=== PATIENT | female | born 1950 | race Caucasian/White ===

== ENCOUNTER 2016-08-10 12:36 | Emergency (ER) | payer BC ==
[2016-08-10] MEDS ORDERED: 0.9 % SODIUM CHLORIDE 10 ML DISP.SYRIN. IV PRN (12:45)
[2016-08-10] MEDS ORDERED: LABETALOL 20 MG/4 ML DISP.SYRIN. IV PRN (12:45)
--- NOTE | 2016-08-10 12:53 | PHYS DOC ---
Past History Past Medical History: Diabetes, High Cholesterol, Hypertension Past Surgical History: Knee Replacement (bilaterally) Smoking: Non-smoker Alcohol Use: None Drug Use: None Adult General Chief Complaint Chief Complaint: difficulty speaking HPI HPI This is a pleasant 65-year-old female with a history of hypertension, hypercholesterolemia, chronic lower back pain but noted difficulty speaking and expressing certain words over the last hour. This began while attempted to call her sister she is having difficulty speaking on the phone. She denies any headache, chest pain, abdominal pain, recent change in medications or trauma. She notes is some slightly decreased sensation on the right lower extremity. He words but it takes her a while to get that out. She has a hard time getting words out that she can remember quickly but cannot seem to speak. Patient denies any prior symptoms the same, denies any URI symptoms, denies any nausea, vomiting, dizziness, tinnitus or other complaints. History of a long-standing strabismus effecting the left eye she's had prior cataract surgeries vision. Her clear dysarthria on examination I would treat this as an acute stroke. Code stroke called she is noted to be hypertensive on arrival which is a relative contra indication at this time and I'll treat aggressively to bring it down. Review of Systems Review of Systems Constitutional: Denies fever or chills [] Eyes: Denies change in visual acuity, redness, or eye pain [] HENT: Denies nasal congestion or sore throat [] Respiratory: Denies cough or shortness of breath [] Cardiovascular: No additional information not addressed in HPI [] GI: Denies abdominal pain, nausea, vomiting, bloody stools or diarrhea [] : Denies dysuria or hematuria [] Musculoskeletal: sHe does complain of lower back pain is chronic in nature nothing changed nothing new. Integument: Denies rash or skin lesions [] Neurologic: Denies headache, focal weakness or sensory changes [] Endocrine: Denies polyuria or polydipsia [] Physical Exam Physical Exam Noted extreme hypertension of 206/69. Constitutional: Well developed, well nourished, obviously uncomfortable anxious morbidly obese. HENT: Normocephalic, atraumatic, bilateral external ears normal, oropharynx moist, no oral exudates, nose normal. [] Eyes: PERRLA, EOMI, conjunctiva normal, no discharge. She'll be noted with a left eye strabismus with lateral gaze preference. Neck: Normal range of motion, no tenderness, supple, no stridor. [] Cardiovascular:Heart rate regular rhythm, no murmur [] Lungs & Thorax: Bilateral breath sounds clear to auscultation [] Abdomen: Bowel sounds normal, soft, no tenderness, no masses, no pulsatile masses. [] Skin: Warm, dry, no erythema, no rash. [] Back: No tenderness, no CVA tenderness. [] Extremities: No tenderness, no cyanosis, no clubbing, ROM intact, no edema. [] Neurologic: Alert and oriented X 3, normal motor function, she did demonstrate some decreased sensation over the right lower extremity. He also demonstrates some aphasia although slight. no Dysarthria Psychologic: Affect normal, judgement normal, she is very anxious [] Current Patient Data Lab Results Laboratory Tests Test 08/10/16 13:30 White Blood Count 8.2 x10^3/uL (4.0-11.0) Red Blood Count 5.01 x10^6/uL (3.50-5.40) Hemoglobin 14.7 g/dL (12.0-15.5) Hematocrit 44.3 % (36.0-47.0) Mean Corpuscular Volume 88 fL (79-100) Mean Corpuscular Hemoglobin 29 pg (25-35) Mean Corpuscular Hemoglobin Concent 33 g/dL (31-37) Red Cell Distribution Width 13.6 % (11.5-14.5) Platelet Count 141 x10^3/uL (140-400) Neutrophils (%) (Auto) 63 % (31-73) Lymphocytes (%) (Auto) 28 % (24-48) Monocytes (%) (Auto) 8 % (0-9) Eosinophils (%) (Auto) 1 % (0-3) Basophils (%) (Auto) 1 % (0-3) Neutrophils # (Auto) 5.2 x10^3uL (1.8-7.7) Lymphocytes # (Auto) 2.3 x10^3/uL (1.0-4.8) Monocytes # (Auto) 0.6 x10^3/uL (0.0-1.1) Eosinophils # (Auto) 0.1 x10^3/uL (0.0-0.7) Basophils # (Auto) 0.0 x10^3/uL (0.0-0.2) EKG EKG EKG timed 12:51 PM demonstrates normal sinus rhythm heart rate 90. [place] interval of 122 QRS width is normal 80 QTc normal at 440. Patient demonstrates T-wave flattening and inversion in V1 which may be a normal variant but there is T- wave flattening in lead 3 there is no evidence of acute myocardial infarct with ST segment elevation. This is read by Dr. Saleem. [] Radiology/Procedures Radiology/Procedures [] [address] [address] IMAGING REPORT Signed PATIENT: KIERSTEN RENTERIA ACCOUNT: [id number] : 1950 LOCATION: ER AGE: 65 SEX: F EXAM STATUS: REG ER ORD. PHYSICIAN: LEA SALEEM MD REASON: aphasia PROCEDURE: CT HEAD WO CONTRAST CT of the head without contrast, 08/10/2016: History: Aphasia, dizziness The ventricles are within normal limits in size. There is no shift of the midline structures. There is no evidence of acute intracranial hemorrhage or mass effect. There is a small deep white matter lucency in the right parietal region. The bone windows are unremarkable. IMPRESSION: 1. Small right parietal deep white matter lucency suggesting an old infarct. Minimal edema due to an active process is less likely. MR scanning would be more sensitive method of further evaluation, if clinically indicated. 2. The CT of the head without contrast is otherwise unremarkable. PQRS Compliance Statement: One or more of the following individualized dose reduction techniques were utilized for this examination: 1. Automated exposure control 2. Adjustment of the mA and/or kV according to patient size 3. Use of iterative reconstruction technique DICTATED AND SIGNED BY: MALENA FUCHS MD DATE: 08/10/16 1316 CC: LEA SALEEM MD; QUE ALMEIDA MD ~ Impressions: Patient's AP chest film timed 1320 p.m. 08/10/[address] Saleem demonstrates no cardiomegaly there is some rotation to the lungs themselves based on positioning of the portal chest x-ray. There is no pleural effusion is no evidence of infiltrate. There is no evidence of pneumothorax or pneumonia. Patient has no evidence of subdiaphragmatic air. Course & Med Decision Making Course & Med Decision Making Pertinent Labs and Imaging studies reviewed. (See chart for details) he initially arrived with some mild light touch proprioception loss on the lower extremity. Given her symptoms she has a stroke scale of 2. She will have a CAT scan done immediately as part of the code stroke He is very hypertensive and our trying to address her hypertension with IV medications specifically labetalol first. I will call neurology once a CAT scan is back to talk with disposition and treatment. CAT scan was reviewed by me report read by radiologist neonatal intensive care unit nurse demonstrates a right parietal deep white matter lucency suggesting an old infarct minimal edema due to an active process is less likely. Suggest MR scanning would be more sensitive for further evaluation if clinically indicated. The CT without contrast is otherwise unremarkable according to the radiologist. 1a. Level of consciousness: 0 = Alert; keenly responsive. 1 = Not alert; but arousable by minor stimulation to obey, answer, or respond. 2 = Not alert; requires repeated stimulation to attend, or is obtunded and requires strong or painful stimulation to make movements (not stereotyped). 3 = Responds only with reflex motor or autonomic effects or totally unresponsive , flaccid, and areflexic. 1b. LOC questions: 0 = Answers both questions correctly. 1 = Answers one question correctly. 2 = Answers neither question correctly. 1c. LOC commands: 0 = Performs both tasks correctly. 1 = Performs one task correctly. 2 = Performs neither task correctly. 2. Best gaze: 0 = Normal. 1 = Partial gaze palsy; gaze is abnormal in one or both eyes, but forced deviation or total gaze paresis is not present. 2 = Forced deviation, or total gaze paresis not overcome by the oculocephalic maneuver. 3. Visual: 0 = No visual loss. 1 = Partial hemianopia. 2 = Complete hemianopia. 3 = Bilateral hemianopia (blind including cortical blindness). 4. Facial palsy: 0 = Normal symmetrical movements. 1 = Minor paralysis (flattened nasolabial fold, asymmetry on smiling). 2 = Partial paralysis (total or near-total paralysis of lower face). 3 = Complete paralysis of one or both sides (absence of facial movement in the upper and lower face). 5. Motor arm: 0 = No drift; limb holds 90 (or 45) degrees for full 10 seconds. 1 = Drift; limb holds 90 (or 45) degrees, but drifts down before full 10 seconds ; does not hit bed or other support. 2 = Some effort against gravity; limb cannot get to or maintain (if cued) 90 ( or 45) degrees, drifts down to bed, but has some effort against gravity. 3 = No effort against gravity; limb falls. 4 = No movement. UN = Amputation or joint fusion, explain: 5a. Left arm 5b. Right arm 6. Motor le = No drift; leg holds 30-degree position for full 5 seconds. 1 = Drift; leg falls by the end of the 5-second period but does not hit bed. 2 = Some effort against gravity; leg falls to bed by 5 seconds, but has some effort against gravity. 3 = No effort against gravity; leg falls to bed immediately. 4 = No movement. UN = Amputation or joint fusion, explain: 6a. Left leg 6b. Right leg 7. Limb ataxia: 0 = Absent. 1 = Present in one limb. 2 = Present in two limbs. UN = Amputation or joint fusion 8. Sensory: 0 = Normal; no sensory loss. 1 = Esbk-oh-fvqictfa sensory loss; patient feels pinprick is less sharp or is dull on the affected side; or there is a loss of superficial pain with pinprick , but patient is aware of being touched. 2 = Severe to total sensory loss; patient is not aware of being touched in the face, arm, and leg. 9. Best language: 0 = No aphasia; normal. 1 = Lezc-ic-vdzhnbsz aphasia; some obvious loss of fluency or facility of comprehension, without significant limitation on ideas expressed or form of expression. Reduction of speech and/or comprehension, however, makes conversation about provided materials difficult or impossible. For example, in conversation about provided materials, examiner can identify picture or naming card content from patient's response. 2 = Severe aphasia; all communication is through fragmentary expression; great need for inference, questioning, and guessing by the listener. Range of information that can be exchanged is limited; listener carries burden of communication. Examiner cannot identify materials provided from patient response. 3 = Mute, global aphasia; no usable speech or auditory comprehension. 10. Dysarthria: 0 = Normal. 1 = Ipaw-de-ucwfebgn dysarthria; patient slurs at least some words and, at worst , can be understood with some difficulty. 2 = Severe dysarthria; patient's speech is so slurred as to be unintelligible in the absence of or out of proportion to any dysphasia, or is mute/anarthric. UN = Intubated or other physical barrier, explain: 11. Extinction and inattention (formerly neglect): 0 = No abnormality. 1 = Visual, tactile, auditory, spatial, or personal inattention or extinction to bilateral simultaneous stimulation in one of the sensory modalities. 2 = Profound elicia-inattention or extinction to more than one modality; does not recognize own hand or orients to only one side of space. I have also reviewed the stroke inclusion and exclusion criteria for TPA with the patient and family at the bedside at this point there is no evidence of intracranial hemorrhage, there is no suggestive history or physical or CT findings of subarachnoid hemorrhage, there is no history of AV malformation or aneurysm. There's been no prior stroke last 2 months has been no history of intercranial hemorrhage is been no history of bleeding diathesis is no evidence of acute bleeding or acute trauma and unfortunately at this point patient's blood pressure is 185 or higher systolically and I will attempt to treat. []Wellness Coach note: Dr. Tello are all just neonatal intensive care unit nurse spoke with him at 1:38 PM Wellness Coach called at of the service 1:35 PM Consult called back at 137 PM Discussed the case I presented and they agreed with admission. Time of acceptance is and will agree to see us consult. Wellness Coach note: neonatal intensive care unit nurse internal medicine Wellness Coach called at of the service 1:38 PM Consult called back at 139 PM Discussed the case I presented and they agreed with admission. Time of acceptance 1:40 p.m. Internal medicine physician and hospital neurologist agree that her blood pressure to be appropriately dropped by at least 30 or 40% under 185 or 100 she is an appropriate candidate for TPA. Her second blood pressure measured at the [facility] is 151/77 with a heart rate of 104. Patient is definitely deserving of this TPA secondary to aphasia. Patient is also relatively young and good strong muscular strength. We will over the inclusion and exclusion criteria with family at bedside they were agreeable to medication we will sign the consent form and agreed to give TPA as soon as possible to be arranged. It was a challenge ordering the TPA as the order instructions of 0.09 kilogram given as a dose is actually incorrect. Patient will be given 0.9 mg/kg as appropriate dose for 10% initially be given as a bolus followed by an hour infusion of the rest medication. Patient will then be admitted to the ICU at [facility]. At this point I used a body weight of 247 pounds 112 kg. Patient will have approximately 10 g given IV bolus 1 and 101 mg give over 1 hour period. We will only give her the appropriate maximal dose of 90 mg though. This point patient is very half to receiving this medication will be consulted for transfer to our sister facility [facility]. I spent approximately 45-50 minutes working and engaged directly in the patient care providing critical care evaluation this includes but not limited to time spent engaged in work directly related to the individual patients care. I spent time at the bedside, reviewing test results, discussing the case with staff, documenting the medical record and time spent with EMS discussing specific treatment issues when the patient presented and during his evaluation. Impression: CVA, hypertension disposition: Transferred to [facility] in the care of neurology and internal medicine. On discharge patient did have a slight experience of amnesia where she was not quite her where she was was happening to her. She just received a small dose of fentanyl which may be contributory symptoms. I explained and shared my concerns with Dr. Elisha Soto Disclaimer Brittany Disclaimer This chart was dictated in whole or in part using Voice Recognition software in a busy, high-work load, and often noisy Emergency Department environment. It may contain unintended and wholly unrecognized errors or omissions. Departure Departure: Impression: Primary Impression: Stroke Additional Impression: Hypertension Disposition: 05 XFER OTHER Condition: GUARDED Referrals: QUE ALMEIDA MD (PCP) Problem Qualifiers LEA SALEEM MD Aug 10, 2016 12:53
--- NOTE | 2016-08-10 13:22 | RAD ---
CT of the head without contrast, 08/10/2016: History: Aphasia, dizziness The ventricles are within normal limits in size. There is no shift of the midline structures. There is no evidence of acute intracranial hemorrhage or mass effect. There is a small deep white matter lucency in the right parietal region. The bone windows are unremarkable. IMPRESSION: 1. Small right parietal deep white matter lucency suggesting an old infarct. Minimal edema due to an active process is less likely. MR scanning would be more sensitive method of further evaluation, if clinically indicated. 2. The CT of the head without contrast is otherwise unremarkable. PQRS Compliance Statement: One or more of the following individualized dose reduction techniques were utilized for this examination: 1. Automated exposure control 2. Adjustment of the mA and/or kV according to patient size 3. Use of iterative reconstruction technique
[2016-08-10 13:45] LABS: BASO % 1 % (0-3); EOS # 0.1 x10^3/uL (0.0-0.7); EOS % 1 % (0-3); HEMATOCRIT 44.3 % (36.0-47.0); HEMOGLOBIN 14.7 g/dL (12.0-15.5); LYMPH # 2.3 x10^3/uL (1.0-4.8); LYMPH % 28 % (24-48); MEAN CORPUSCULAR HEMOGLOBIN 29 pg (25-35); MEAN CORPUSCULAR HGB CONC 33 g/dL (31-37); MEAN CORPUSCULAR VOLUME 88 fL (79-100); MONO # 0.6 x10^3/uL (0.0-1.1); MONO % 8 % (0-9); NEUT # 5.2 x10^3uL (1.8-7.7); NEUT % 63 % (31-73); PLATELET COUNT 141 x10^3/uL (140-400); RED BLOOD COUNT 5.01 x10^6/uL (3.50-5.40); RED CELL DISTRIBUTION WIDTH 13.6 % (11.5-14.5); WHITE BLOOD COUNT 8.2 x10^3/uL (4.0-11.0)
[2016-08-10] MEDS ORDERED: TOTAL VOLUME IV ONE (13:45)
[2016-08-10] MEDS ORDERED: ALTEPLASE IV ONE ×3 (13:45→14:29)
[2016-08-10] MEDS ORDERED: ALTEPLASE 100 MG IV ONE (13:55)
[2016-08-10 14:00] LABS: ALBUMIN 3.3 g/dL (3.4-5.0); ALBUMIN/GLOBULIN RATIO 0.8 (1.0-1.7); CALCIUM 8.8 mg/dL (8.5-10.1); CREATININE 1.3 mg/dL (0.6-1.0); GFR 41.2; POTASSIUM 4.2 mmol/L (3.5-5.1); TOTAL BILIRUBIN 0.5 mg/dL (0.2-1.0); TOTAL PROTEIN 7.4 g/dL (6.4-8.2)
[2016-08-10] MEDS ORDERED: fentaNYL PF 100 MCG/2 ML VIAL IV PRN (14:00)
[2016-08-10] MEDS ORDERED: IV NORMAL SALINE 1,000ML 1,000 ML IV SCH (14:00)
--- NOTE | 2016-08-10 14:01 | RAD ---
Portable chest, 08/10/2016: History: Chest pain, slurred speech The patient is rotated to the right. The heart size and pulmonary vascularity are normal. No pulmonary infiltrates are seen. There is no evidence of pleural fluid. There is deformity of the mid right clavicle compatible with an old fracture. IMPRESSION: No acute cardiopulmonary abnormality is detected.
--- NOTE | 2016-08-10 14:15 | EKG ---
[address] [address] Test Date: 2016-08-10 Test Time: 12:51:14 Pat Name: KIERSTEN RENTERIA Department: Room: Gender: F [employer]: : 1950 Requested By: LEA SALEEM Order Number: [id number] Reading MD: Measurements Intervals [place] Rate: 90 P: -124 MD: 122 QRS: 11 QRSD: 80 T: 33 QT: 356 QTc: 440 Interpretive Statements SINUS RHYTHM QRS(T) CONTOUR ABNORMALITY CONSIDER ANTEROLATERAL MYOCARDIAL DAMAGE RI6.01 Unconfirmed report No previous ECG available for comparison
[2016-08-10 15:11] VITALS: BP 160/82
== END 2016-08-10 15:20 | disposition short-term general hospital (02) ==
LOC: ER 12:36
DX: I63.9 Cerebral infarction, unspecified (principal); I10 Essential (primary) hypertension; E11.9 Type 2 diabetes mellitus without complications; E78.00 Pure hypercholesterolemia, unspecified; G89.29 Other chronic pain
CPT/HCPCS: 36415; 37195; 70450; 71010; 80053; 83735; 84443; 84484; 85027; 93005; 96374; 99285; J2997; J3010; J7030

== ENCOUNTER → 2017-03-24 | Outpatient (CLI) | payer MEDICARE | END | disposition home or self-care (01) | LOC: LAB 13:33 | PROVIDERS: ATTEND Internal Medicine Gastroenterology | DX: K63.5 Polyp of colon (principal) | CPT/HCPCS: 36415; 82378 ==

== ENCOUNTER 2019-08-17 03:19 | Inpatient (IN) | payer MEDICARE ==
[~2019-08-17] VITALS: Ht 160 cm; Wt 112.5 kg
--- NOTE | 2019-08-17 03:40 | PHYS DOC ---
Past History Past Medical History: A-Fib, Arthritis, Arrhythmia, CAD, Diabetes, High Cholesterol, Hypertension, Stroke, TIA Past Medical History Sleep apnea, CVA- August 10, TPA, Hx. Past Surgical History: Knee Replacement Smoking: Non-smoker Alcohol Use: None Drug Use: None General Adult HPI: HPI: "..I felt like my CPAP was not right. I was sleeping.. so I was trying to arrange..it..but my Rt. hand and arm didn't seem right..my fingers were "t ingled"..but I could nt get my glasses .. since I had a stroke two years ago...I woke up my .. and had him call the ambulance..." " My speech was tiffany slurred.. or seemed like..." ( Pt.) " She woke me up about 1:30... said she thought she was having another stroke...she had one 2 yrs ago... got TPA.. and then rehab... ".." I noted her speech was off.. and could not get her glasses on... ".. ".. But she was able to get and go to the bathroom.. and then put on her shoes.. but I called the ambulance." "Speech was maybe a little slurred." Patient is a 68 year old female who presents with above hx and complaints of acute onset of tingling sensation in right hand and some slurred speech at 130 this morning.. Patient has history of previous CVA with TPA 2016. Patient currently is alert and oriented able answer questions.. Some mild complaints of sensation changes in her right hand fingertips but no acute new deficits appreciated.. Pt. reportedly at baseline at 2330 when she went to bed. Patient currently on Eliquis for her A. fib.. Has been compliant with her diabetic and hypertensive meds. Patient did have a recent fall on of this week due to chronic gait disorder which is baseline for her. Patient has not had any recent travel outside the [place] area. No specific ill contacts. No change in medications. Patient normally follows with Dr. Almeida. Has fol lowlana at [facility] for cardiac disorders of A. fib and hypertension. Review of Systems: Review of Systems: Constitutional: Denies fever or chills Eyes: Denies change in visual acuity HENT: Denies nasal congestion or sore throat Respiratory: Denies cough or shortness of breath Cardiovascular: Denies chest pain or edema GI: Denies abdominal pain, nausea, vomiting, bloody stools or diarrhea : Denies dysuria Musculoskeletal: Denies back pain or joint pain Integument: Denies rash Neurologic: Denies headache,. Complains of sensory changes in tips of right fingers. Complains of slurred speech. Endocrine: Denies polyuria or polydipsia Lymphatic: Denies swollen glands Psychiatric: Denies depression or anxiety Heart Score: HEART Score for Chest Pain: HEART Score for Chest Pain Response (Comments) Value History Slighlty/Non-Suspicious 0 ECG Normal 0 Age > 65 2 Risk Factors 1 or 2 Risk Factors 1 Total 3 Risk Factors: Risk Factors: DM, Current or recent (<one month) smoker, HTN, HLP, family history of CAD, obesity. Risk Scores: Score 0 - 3: 2.5% MACE over next 6 weeks - Discharge Home Score 4 - 6: 20.3% MACE over next 6 weeks - Admit for Clinical Observation Score 7 - 10: 72.7% MACE over next 6 weeks - Early Invasive Strategies Family History: Family History: Noncontributory to presentation. Current Medications: Current Meds: See nursing for home meds Allergies: Allergies: Allergies Coded Allergies Type Severity Reaction Last Updated Verified No Known Drug Allergies 08/10/16 No Physical Exam: PE: Constitutional: , no acute distress, non-toxic appearance. [] HENT: Normocephalic, atraumatic, bilateral external ears normal, oropharynx moist, no oral exudates, nose normal. [] Eyes: PERRLA, EOMI, conjunctiva normal, no discharge. [] Glasses Neck: Normal range of motion, no tenderness, supple, no stridor. [] No bruits. Neck more than 17-1/2 inches circumference Cardiovascular:Heart rate regular rhythm, no murmur [] PMI to the left Lungs & Thorax: Bilateral breath sounds equal apex some basilar crackles on auscultation [] Abdomen: Bowel sounds normal, soft, no tenderness, no masses, no pulsatile masses. Obese. Large pannus. Urinary incontinence.-Chronic Skin: Warm, dry, no erythema, no rash. Poor turgor Back: No tenderness, no CVA tenderness. [] Extremities: No tenderness, no cyanosis, no clubbing, ROM intact, bilateral ankle edema. [] Bilateral knee scars. Arthritic changes. Neurologic: Alert and oriented X 3, currently reports normal motor for her, no focal deficits noted., Subjective complaints of "tingle" RT hand finger tips. DTR-+ 2 brachial. NIH 1 to 2 . (No new demonstratable defects based on observation and pt. reports) Psychologic: Affect anxious, judgement normal, mood normal. [] Current Patient Data: Labs: Laboratory Tests Test 08/17/19 03:24 Glucose (Fingerstick) 215 mg/dL (70-99) H EKG: EKG: My interpretation EKG shows a sinus rhythm at 70 bpm with no acute morphology. [] Radiology/Procedures: Radiology/Procedures: [address] [address] IMAGING REPORT Signed PATIENT: KIERSTEN RENTERIA ACCOUNT: [id number] : 1950 LOCATION: ER AGE: 68 SEX: F EXAM STATUS: REG ER ORD. PHYSICIAN: LINDA HORNER MD REASON: TIA vs CVA, slurred speech, altered mental status PROCEDURE: PORTABLE CHEST 1V PORTABLE CHEST 1V INDICATION: Reason: TIA vs CVA, slurred speech, altered mental status / Spl. Instructions: / History: . COMPARISON STUDY: 08/10/2016. FINDINGS: Lungs: Normal lung volume. No pulmonary mass or consolidation. The tracheobronchial tree and hilar structures are normal. Pleura: No pleural effusion or pneumothorax. Heart and Mediastinum: The cardiomediastinal silhouette is normal. The great vessels of the thorax are normal. IMPRESSION: No acute cardiopulmonary process. Electronically signed by: Pavan Roman MD (08/17/2019 4:01 AM) [facility] DICTATED AND SIGNED BY: PAVAN ROMAN MD DATE: 08/17/19 0401 CC: LINDA HORNER MD; QUE ALMEIDA MD ~ [][address] [address] IMAGING REPORT Signed PATIENT: KIERSTEN RENTERIA ACCOUNT: [id number] : 1950 LOCATION: ER AGE: 68 SEX: F EXAM STATUS: PRE ER ORD. PHYSICIAN: LINDA HORNER MD REASON: Slurred speech, altered mental status PROCEDURE: CT CODE STROKE HEAD WO CT CODE STROKE HEAD WO Date: 08/17/2019 3:41 AM Clinical Indication: Reason: Slurred speech, altered mental status / Spl. Instructions: / History: Comparison: 08/14/2016, 08/10/2016. Technique: 5 mm axial tomographic images were obtained of the head without contrast. These were viewed on brain and bone windows. One or more of the following dose reduction techniques were utilized: Automated exposure control (AEC), Adjustment of mA and/or kV according to patient size, Use of iterative reconstruction technique such as ASiR, CT scan done according to ALARA and image gently/image wisely Findings: Mild nonspecific periventricular hypoattenuation is most consistent with chronic small vessel ischemic disease. No intra- or extra-axial mass or fluid collection. No acute hemorrhage. The ventricles are normal in size, shape, and morphology. The gregory-white matter junction is normal. The subarachnoid cisterns are patent. Small area of left frontal and moderate-sized left parietal encephalomalacia. Small area of right centrum semiovale ovale encephalomalacia. The visualized paranasal sinuses are normal. The visualized portions of the orbits and globes are normal. The mastoid air cells are clear. The patient care specialist topogram shows no lytic lesion or fracture. Impression: 1. No acute hemorrhage or large territory gregory-white loss. 2. Moderate-sized left parietal, small left frontal, and small right centrum semiovale encephalomalacia. Findings were discussed with Dr. Horner at 3:48 AM on 08/17/2019. FOR INTERNAL CODING PURPOSES RESULT CODE: (C) Electronically signed by: Pavan Roman MD (08/17/2019 3:51 AM) [facility] DICTATED AND SIGNED BY: PAVAN ROMAN MD DATE: 08/17/19 0351 CC: LINDA HORNER MD; QUE ALMEIDA MD ~ Course & Med Decision Making: Course & Med Decision Making Pertinent Labs and Imaging studies reviewed. (See chart for details) Discussed options of treatment with patient and -their request if admitted to be admitted here for observation. Discussed presentation testing and treatment plan with 0400 will follow pt. her here for her TIA/CVA/ neuro complaints. Discussed presentation testing and treatment plan with Dr. Fernando, will admit for Neuro and Cardiology Consults Impression: 1. TIA/CVA/ Neurocomplaints- Rt. finger tips 'tingle' and speaking difficulty. 2. Diabetes glucose currently 215 3. Hypertension 4. Hyperkalemia 5.4 5. Elevated troponin 0.117 6. Elevated CRP 6.0 7. Hypo-magnesium 2.5 8. Elevated creatinine 1.3 [] Dragon Disclaimer: Dragon Disclaimer: This electronic medical record was generated, in whole or in part, using a voice recognition dictation system. Departure Departure: Disposition: 01 HOME/RESIDENCE PRIOR TO ADM Condition: STABLE Referrals: QUE ALMEIDA MD (PCP) Justification of Admission: Justification of Admission: Justification of Admission Dx: N/A Dragon Disclaimer This chart was dictated in whole or in part using Voice Recognition software in a busy, high-work load, and often noisy Emergency Department environment. It may contain unintended and wholly unrecognized errors or omissions. LINDA HORNER MD Aug 17, 2019 03:40
--- NOTE | 2019-08-17 03:54 | RAD ---
CT CODE STROKE HEAD WO Date: 08/17/2019 3:41 AM Clinical Indication: Reason: Slurred speech, altered mental status / Spl. Instructions: / History: Comparison: 08/14/2016, 08/10/2016. Technique: 5 mm axial tomographic images were obtained of the head without contrast. These were viewed on brain and bone windows. One or more of the following dose reduction techniques were utilized: Automated exposure control (AEC), Adjustment of mA and/or kV according to patient size, Use of iterative reconstruction technique such as ASiR, CT scan done according to ALARA and image gently/image wisely Findings: Mild nonspecific periventricular hypoattenuation is most consistent with chronic small vessel ischemic disease. No intra- or extra-axial mass or fluid collection. No acute hemorrhage. The ventricles are normal in size, shape, and morphology. The gregory-white matter junction is normal. The subarachnoid cisterns are patent. Small area of left frontal and moderate-sized left parietal encephalomalacia. Small area of right centrum semiovale ovale encephalomalacia. The visualized paranasal sinuses are normal. The visualized portions of the orbits and globes are normal. The mastoid air cells are clear. The asset administrator topogram shows no lytic lesion or fracture. Impression: 1. No acute hemorrhage or large territory gregory-white loss. 2. Moderate-sized left parietal, small left frontal, and small right centrum semiovale encephalomalacia. Findings were discussed with Dr. Horner at 3:48 AM on 08/17/2019. FOR INTERNAL CODING PURPOSES RESULT CODE: (C) Electronically signed by: Jesse Roman MD (08/17/2019 3:51 AM) [facility]
--- NOTE | 2019-08-17 04:04 | RAD ---
PORTABLE CHEST 1V INDICATION: Reason: TIA vs CVA, slurred speech, altered mental status / Spl. Instructions: / History: . COMPARISON STUDY: 08/10/2016. FINDINGS: Lungs: Normal lung volume. No pulmonary mass or consolidation. The tracheobronchial tree and hilar structures are normal. Pleura: No pleural effusion or pneumothorax. Heart and Mediastinum: The cardiomediastinal silhouette is normal. The great vessels of the thorax are normal. IMPRESSION: No acute cardiopulmonary process. Electronically signed by: Jesse Roman MD (08/17/2019 4:01 AM) [facility]
[2019-08-17 04:12] LABS: BASO # 0.1 x10^3/uL (0.0-0.2); BASO % 1 % (0-3); EOS # 0.1 x10^3/uL (0.0-0.7); EOS % 2 % (0-3); HEMATOCRIT 43.7 % (36.0-47.0); HEMOGLOBIN 14.3 g/dL (12.0-15.5); LYMPH # 2.3 x10^3/uL (1.0-4.8); LYMPH % 32 % (24-48); MEAN CORPUSCULAR HEMOGLOBIN 30 pg (25-35); MEAN CORPUSCULAR HGB CONC 33 g/dL (31-37); MEAN CORPUSCULAR VOLUME 92 fL (79-100); MONO # 0.6 x10^3/uL (0.0-1.1); MONO % 9 % (0-9); NEUT # 4.1 x10^3uL (1.8-7.7); NEUT % 57 % (31-73); PLATELET COUNT 175 x10^3/uL (140-400); RED BLOOD COUNT 4.73 x10^6/uL (3.50-5.40); RED CELL DISTRIBUTION WIDTH 13.6 % (11.5-14.5); WHITE BLOOD COUNT 7.3 x10^3/uL (4.0-11.0)
[2019-08-17 04:24] LABS: CALCIUM 8.8 mg/dL (8.5-10.1); CREATININE 1.3 mg/dL (0.6-1.0); GFR 40.9; POTASSIUM 5.4 mmol/L (3.5-5.1)
[2019-08-17 04:29] LABS: ALBUMIN 3.5 g/dL (3.4-5.0); DIRECT BILIRUBIN 0.1 mg/dL (0.0-0.2); MAGNESIUM 2.5 mg/dL (1.8-2.4); TOTAL BILIRUBIN 0.4 mg/dL (0.2-1.0)
[2019-08-17] MEDS ORDERED: ACETAMINOPHEN 325 MG TABLET PO PRN (04:45)
[2019-08-17] MEDS ORDERED: ONDANSETRON PF 4 MG/2 ML VIAL. IVP PRN (04:45)
[2019-08-17 05:07] LABS: AMPHETAMINE/METHAMPHETAMINE NEG (NEG); BARBITURATES NEG (NEG); BENZODIAZEPINES NEG (NEG); CANNABINOIDS NEG (NEG); COCAINE NEG (NEG); METHADONE NEG (NEG); OPIATES NEG (NEG); PHENCYCLIDINE NEG (NEG)
[2019-08-17 05:09] LABS: BILIRUBIN,URINE NEG (NEG); CLARITY,URINE CLEAR; COLOR,URINE YELLOW; GLUCOSE,URINE >=1000 mg/dL (NEG); NITRITE,URINE NEG (NEG); UROBILINOGEN,URINE 0.2 mg/dL (0.2 mg/dL)
[2019-08-17 05:10] LABS: BACTERIA,URINE 0 /HPF (0-FEW); SQUAMOUS EPITHELIAL CELL,UR OCC /LPF; WBC,URINE RARE /HPF (0-4)
--- NOTE | 2019-08-17 06:15 | NUR ---
Admission Note: Pt transported via EMS from ED to room 111, pt ambulated w/two person assist from cart to bed, VSS, no c/o pain or n/v at this time, pt continues to have delayed speech (cannot find her words) and mild decreased sensation in bilateral fingertips, telemetry applied, and patient oriented to room and call light.
[2019-08-17 06:37] VITALS: BP 130/82
[2019-08-17] MEDS ORDERED: DOFE250C4 PO (07:16)
[2019-08-17] MEDS ORDERED: AMLO10TA8 PO (07:16)
[2019-08-17] MEDS ORDERED: ASPI-630 PO (07:16)
[2019-08-17] MEDS ORDERED: METO25TA4 PO (07:16)
[2019-08-17] MEDS ORDERED: ZOLP10TA PO (07:16)
[2019-08-17] MEDS ORDERED: APIX5TAB3 PO (07:16)
[2019-08-17] MEDS ORDERED: TROS60CA2 PO (07:16)
[2019-08-17] MEDS ORDERED: GLIM4TAB8 PO (07:16)
[2019-08-17] MEDS ORDERED: TEMA15CA PO (07:16)
[2019-08-17] MEDS ORDERED: GABA-586 PO (07:16)
[2019-08-17] MEDS ORDERED: LEVO200T5 PO (07:16)
[2019-08-17] MEDS ORDERED: DAPA10TA PO (07:16)
[2019-08-17] MEDS ORDERED: SIMV20TA18 PO (07:16)
[2019-08-17] MEDS ORDERED: TRAM50TA PO (07:16)
[2019-08-17] MEDS ORDERED: VENL75TA PO (07:16)
[2019-08-17] MEDS ORDERED: POTA20TA4 PO (07:16)
[2019-08-17] MEDS ORDERED: INSU100I13 SQ (07:16)
[2019-08-17] MEDS ORDERED: IRON18TA PO (07:16)
[2019-08-17] MEDS ORDERED: LOSA100T14 PO (07:16)
[2019-08-17] MEDS ORDERED: MAGN200T7 PO (07:16)
--- NOTE | 2019-08-17 08:57 | RAD ---
DOPPLER CAROTID BILAT History: Reason: TIA/CVA/SPEECH, SENSATION / Spl. Instructions: / History: COMPARISON: None Technique: Duplex sonography of the cervical portion of both carotid arteries was performed. Real-time grayscale, color flow Doppler, and Doppler spectral waveform analysis is performed. PQRS Compliance Statement - Stenosis calculations for CT, MR and conventional angiography are based upon measurement of the distal ICA diameter in accordance with the NASCET methodology. Stenosis calculations for carotid ultrasound studies are derived from validated velocity criteria which are known to correlate with the NASCET methodology. Findings: Right side: Peak systolic flow velocity of the CCA is 89 cm/sec. Peak systolic flow velocity of the ICA is 102 cm/sec. The ICA/CCA ratio is 1.2. Peak end diastolic flow velocity of the ICA is 21 cm/sec. The peak systolic velocity of the ECA is 90 cm/sec. Mild atheromatous plaque. Left side: Peak systolic flow velocity of the CCA is 131 cm/sec. Peak systolic flow velocity of the ICA is 110 cm/sec. The ICA/CCA ratio is 0.8. Peak end diastolic flow velocity of the ICA is 27 cm/sec. Peak systolic flow velocity of the ECA is widely cm/sec. Mild atheromatous plaque. Vertebral arteries: Bilateral vertebral arteries demonstrate antegrade flow. IMPRESSION: 1. No hemodynamically significant internal carotid artery stenosis. 2. Mild atheromatous plaque bilaterally most prominent within the carotid bifurcations. Electronically signed by: Demetrius Rodriguez DO (08/17/2019 8:54 AM) [id number]
[2019-08-17] MEDS ORDERED: APIXABAN 5 MG TABLET. PO SCH (09:00)
[2019-08-17] MEDS ORDERED: NON FORMULARY ITEM (Dapagliflozin Propanediol (Farxiga) 10 MG) PO SCH (09:00)
[2019-08-17] MEDS ORDERED: traMADol 50 MG TABLET PO PRN (09:00)
[2019-08-17] MEDS ORDERED: ASPIRIN CHEWABLE 81 MG TABLET. PO SCH (09:00)
[2019-08-17] MEDS ORDERED: POTASSIUM CHLORIDE 20 MEQ TABLET.ER. PO SCH (09:00)
[2019-08-17] MEDS ORDERED: METOPROLOL TART IMMED RELEASE 25 MG TABLET PO SCH (09:00)
--- NOTE | 2019-08-17 09:02 | PDOC2 ---
BJ CARRERA RUBBER COMPOUNDER 08/17/19 0902: CARDIAC CONSULT DATE OF CONSULT Date Of Consult DATE: 08/17/19 TIME: 08:47 REASON FOR CONSULT Reason for Consult Elevated trop H/o CAD REFERRING PHYSICIAN Referring Physician Dr. Horner SOURCE Source: Chart review, Patient HPI History of Present Illness This is a 68 yo female who presented secondary to stroke-like symptoms. Patietnt reports she woke up about 130 this morning with new onset of tingling sensation in right hand and some slurred speech. Patient has history of CVA and was concerned she was having another stroke so she called EMS. Has cardiac history including CAD, AFIB, HTN, HLP. Follow with Dr. Hinojosa with [facility]. She denies any chest pain, palpitations, dizziness, diaphoresis, or nausea/vomiting. Speech has improved, but continues to have some expressive aphasia. PAST MEDICAL HISTORY Cardiovascular: AFIB, HTN, hyperipidemia Pulmonary: Other (CAROL) CENTRAL NERVOUS SYSTEM: CVA, Periperal neuropathy, TIA Heme/Onc: Other (DVT) Musculoskeletal: Osteoarthritis Endocrine: Diabetes, Hypothyroidism PAST SURGICAL HISTORY Past Surgical History: Total knee replacement (bilateral ) FAMILY HISTORY Family History: Hypertension SOCIAL HISTORY Smoke: No ALCOHOL: none Drugs: None Lives: with Family CURRENT MEDICATIONS Current Medications Current Medications Ondansetron HCl (Zofran) 4 mg PRN Q4HRS PRN IVP NAUSEA/VOMITING; Start 08/17/19 at 04:45; Stop 08/18/19 at 04:44 Acetaminophen (Tylenol) 650 mg PRN Q4HRS PRN PO FEVER > 100.3'F; Start 08/17/19 at 04:45; Stop 08/18/19 at 04:44 Active Scripts Active Reported Iron 18 Mg Tablet 65 Mg PO DAILY Levothyroxine Sodium 200 Mcg Tablet 1 Tab PO DAILY Lantus Solostar (Insulin Glargine,Hum.rec.anlog) 100 Unit/1 Ml Insuln.pen 40 Unit SQ QHS Ambien (Zolpidem Tartrate) 10 Mg Tablet 10 Mg PO PRN QHS PRN Tramadol Hcl (Tramadol HCl) 50 Mg Tablet 50 Mg PO PRN Q6HRS PRN Losartan Potassium 100 Mg Tablet 100 Mg PO DAILY Aspirin 81 Mg Tab.chew 81 Mg PO DAILY Venlafaxine Hcl 75 Mg Tablet 1 Tab PO DAILY Metoprolol Tartrate 25 Mg Tablet 1 Tab PO BID Gabapentin (Gabapentin) 300 Mg Capsule 300 Mg PO TID Dofetilide 250 Mcg Capsule 1 Cap PO BID 30 Days Mag-Oxide (Magnesium Oxide) 200 Mg Tablet 400 Mg PO DAILY Temazepam 15 Mg Capsule 1 Cap PO QHS Farxiga (Dapagliflozin Propanediol) 10 Mg Tablet 10 Mg PO DAILY Simvastatin 20 Mg Tablet 1 Tab PO QHS Glimepiride 4 Mg Tablet 1 Tab PO DAILY Amlodipine Besylate 10 Mg Tablet 1 Tab PO DAILY Eliquis (Apixaban) 5 Mg Tablet 5 Mg PO BID Trospium Chloride 60 Mg Cap.er.24h 60 Mg PO DAILY Klor-Con M20 (Potassium Chloride) 20 Meq Tab.er.prt 1 Tab PO DAILY 30 Days ALLERGIES Allergies: Coded Allergies: No Known Drug Allergies (Unverified , 08/10/16) ROS Review of Systems 14 point ROS conducted with pertinent positives noted above in HPI PHYSICAL EXAM General: Alert, Oriented X3, Cooperative, No acute distress HEENT: Atraumatic, Mucous membr. moist/pink Lungs: Clear to auscultation Heart: Regular rate Abdomen: Soft, No tenderness Extremities: No edema, Normal pulses Skin: No breakdown Neuro: Sensation intact, Other (expressive aphasia ) Psych/Mental Status: Mental status NL, Mood NL MUSCULOSKELETAL: Osteoarthritic changes both hands VITALS Vital Signs Vital Signs Date Time Temp Pulse Resp B/P (MAP) Pulse Ox O2 Delivery O2 Flow Rate FiO2 08/17/19 06:37 98.2 57 18 130/82 (98) 100 Room Air LABS LABS Laboratory Tests Test 08/17/19 03:24 08/17/19 03:36 08/17/19 04:00 Prothrombin Time 10.6 SEC (9.4-11.4) Prothromb Time International Ratio 1.0 (0.9-1.1) Activated Partial Thromboplast Time 27 SEC (23-33) D-Dimer (Eri) 1.52 mg/L (0.00-0.50) Sodium Level 138 mmol/L (136-145) Potassium Level 5.4 mmol/L (3.5-5.1) Chloride Level 104 mmol/L (98-107) Carbon Dioxide Level 27 mmol/L (21-32) Anion Gap 7 (6-14) Blood Urea Nitrogen 16 mg/dL (7-20) Creatinine 1.3 mg/dL (0.6-1.0) Estimated GFR (Cockcroft-Gault) 40.9 Glucose Level 226 mg/dL (70-99) Glucose (Fingerstick) 215 mg/dL (70-99) Calcium Level 8.8 mg/dL (8.5-10.1) Magnesium Level 2.5 mg/dL (1.8-2.4) Total Bilirubin 0.4 mg/dL (0.2-1.0) Direct Bilirubin 0.1 mg/dL (0.0-0.2) Aspartate Amino Transf (AST/SGOT) 23 U/L (15-37) Alanine Aminotransferase (ALT/SGPT) 27 U/L (14-59) Alkaline Phosphatase 43 U/L (46-116) Creatine Kinase 61 U/L (26-192) Troponin I Quantitative 0.117 ng/mL (0-0.055) C-Reactive Protein 6.0 mg/L (0-3.3) HM-Ofu-O-Type Natriuretic Peptide 532 pg/mL (0-124) Total Protein 7.0 g/dL (6.4-8.2) Albumin 3.5 g/dL (3.4-5.0) Lipase 386 U/L (73-393) White Blood Count 7.3 x10^3/uL (4.0-11.0) Red Blood Count 4.73 x10^6/uL (3.50-5.40) Hemoglobin 14.3 g/dL (12.0-15.5) Hematocrit 43.7 % (36.0-47.0) Mean Corpuscular Volume 92 fL (79-100) Mean Corpuscular Hemoglobin 30 pg (25-35) Mean Corpuscular Hemoglobin Concent 33 g/dL (31-37) Red Cell Distribution Width 13.6 % (11.5-14.5) Platelet Count 175 x10^3/uL (140-400) Neutrophils (%) (Auto) 57 % (31-73) Lymphocytes (%) (Auto) 32 % (24-48) Monocytes (%) (Auto) 9 % (0-9) Eosinophils (%) (Auto) 2 % (0-3) Basophils (%) (Auto) 1 % (0-3) Neutrophils # (Auto) 4.1 x10^3uL (1.8-7.7) Lymphocytes # (Auto) 2.3 x10^3/uL (1.0-4.8) Monocytes # (Auto) 0.6 x10^3/uL (0.0-1.1) Eosinophils # (Auto) 0.1 x10^3/uL (0.0-0.7) Basophils # (Auto) 0.1 x10^3/uL (0.0-0.2) Lactic Acid Level 0.9 mmol/L (0.4-2.0) Urine Collection Type U cath Urine Color Yellow Urine Clarity Clear Urine pH 5.5 Urine Specific [place] 1.010 Urine Protein Neg (NEG-TRACE) Urine Glucose (UA) >=1000 mg/dL (NEG) Urine Ketones (Stick) Neg mg/dL (NEG) Urine Blood Mod (NEG) Urine Nitrite Neg (NEG) Urine Bilirubin Neg (NEG) Urine Urobilinogen Dipstick 0.2 mg/dL (0.2 mg/dL) Urine Leukocyte Esterase Neg (NEG) Urine RBC 11-20 /HPF (0-2) Urine WBC Rare /HPF (0-4) Urine Squamous Epithelial Cells Occ /LPF Urine Bacteria 0 /HPF (0-FEW) Urine Opiates Screen Neg (NEG) Urine Methadone Screen Neg (NEG) Urine Barbiturates Neg (NEG) Urine Phencyclidine Screen Neg (NEG) Urine Amphetamine/Methamphetamine Neg (NEG) Urine Benzodiazepines Screen Neg (NEG) Urine Cocaine Screen Neg (NEG) Urine Cannabinoids Screen Neg (NEG) Urine Ethyl Alcohol Neg (NEG) ASSESSMENT/PLAN Assessment/Plan 1. New onset dysarthria, right arm tingling with h/o CVA. Carotid doppler pending. 2. Mild troponin elevation; initial 0.117. Most probably type II, demand ischemia. CP free 3. PAFIB; presently SR. on Tikosyn for rhythm maintenance. Eliquis for stroke prophylaxis 4. Hypertension; controlled 5. Hyperlipidemia; statin 6. Diabetes, II 7. CKD 8. Hyperkalemia 9. Hypothyroidism Recommendations Obtain cardiac records from primary cloth examiner machine, Dr. Hinojosa Lipids, TSH Trend troponin Echo with bubble study to r/o intracardiac shunting with probable recurrent stroke. Continue Eliquis Tikosyn, metoprolol for rhythm, rate control. Obtain EKG to note QTc Supportive care Further pending above. TAMMY MORROW MD 08/17/19 1600: CARDIAC CONSULT Attending Co-Sign The patient was seen and interviewed as well as examined at the bedside. The chart was reviewed. The case was discussed. Agree with the plan of care. BJ CARRERA APRN Aug 17, 2019 09:02 TAMMY MORROW MD Aug 17, 2019 16:00
[2019-08-17] MEDS ORDERED: LOSARTAN 50 MG TABLET. PO SCH (09:15)
[2019-08-17] MEDS ORDERED: GLIMEPIRIDE 2 MG TABLET PO SCH (09:15)
[2019-08-17] MEDS ORDERED: MAGNESIUM OXIDE 400 MG TABLET PO SCH (09:15)
[2019-08-17] MEDS ORDERED: amLODIPine BESYLATE 10 MG TABLET PO SCH (09:30)
[2019-08-17] MEDS ORDERED: LEVOTHYROXINE 175 MCG TABLET PO SCH ×2 (09:45→21:00)
[2019-08-17] MEDS ORDERED: DOFETILIDE 250 MCG CAPSULE PO SCH (09:45)
[2019-08-17] MEDS: OXYBUTYNIN CHLORIDE 5 MG TABLET PO SCH ×2 (09:58→14:15)
[2019-08-17] MEDS: GABAPENTIN 300 MG CAPSULE. PO SCH ×2 (09:58→14:15)
[2019-08-17 10:06] VITALS: BP 118/58
[2019-08-17] MEDS ORDERED: INSU100I17 SQ (11:48)
[2019-08-17] MEDS ORDERED: INSULIN LISPRO 300 UNITS/3 ML VIAL. SQ SCH ×2 (12:00→14:33)
--- NOTE | 2019-08-17 13:35 | EKG ---
[address] [address] Test Date: 2019-08-17 Test Time: 13:00:46 Pat Name: KIERSTEN RENTERIA Department: Room: 111 A Gender: F Hoop Maker: : 1950 Requested By: SIMON VALLE Order Number: [id number] Reading MD: Measurements Intervals [place] Rate: 70 P: 90 LA: 218 QRS: 13 QRSD: 76 T: 28 QT: 446 QTc: 485 Interpretive Statements SINUS RHYTHM PROLONGED QT NO SPECIFIC ECG ABNORMALITIES RI6.01 No previous ECG available for comparison
--- NOTE | 2019-08-17 13:35 | EKG ---
[address] [address] Test Date: 2019-08-17 Test Time: 03:31:50 Pat Name: KIERSTEN RENTERIA Department: Room: Gender: F Coat Joiner: : 1950 Requested By: LINDA LUCERO Order Number: [id number] Reading MD: Measurements Intervals [place] Rate: 70 P: 90 [place]: 214 QRS: 16 QRSD: 82 T: 22 QT: 428 QTc: 465 Interpretive Statements SINUS RHYTHM NO SPECIFIC ECG ABNORMALITIES RI6.02 No previous ECG available for comparison
[2019-08-17 14:18] VITALS: BP 126/46
--- NOTE | 2019-08-17 14:38 | CARD ---
MR#: [id number] Date of Study: 08/17/2019 Ordering Physician: TAMMY MORROW, Referring Physician: TAMMY MORROW, Tech: Sugar Rushing YOGESH APPROVED REPORT EXAM: Two-dimensional and M-mode echocardiogram with Doppler and color Doppler. Other Information Quality : Good Technically limited study due to body habitus. INDICATION CVA/TIA Echo Enhancing Agent Agent/Amount Used: Agitated [id number] 2D DIMENSIONS RVDd2.4 (2.9-3.5cm)Left Atrium(2D)3.8 (1.6-4.0cm) IVSd1.0 (0.7-1.1cm)Aortic Root(2D)3.5 (2.0-3.7cm) LVDd6.3 (3.9-5.9cm)LVOT Diameter2.1 (1.8-2.4cm) PWd1.1 (0.7-1.1cm)LVDs3.9 (2.5-4.0cm) FS (%) 30.0 %LVEF(%)60.0 (>50%) Aortic Valve AoV Peak Issa.210.0cm/sAoV VTI46.0cm AO Peak GR.18.0mmHgLVOT Peak Issa.107.0cm/s LVOT VTI 23.00cmAO Mean GR.9mmHg BEN (VTI)1.80cm2 LEFT VENTRICLE The Left Ventricle is mildly dilated. There is normal left ventricular wall thickness. The left ventr icular systolic function is normal and the ejection fraction is within normal range. The Ejection Fra ction is 55-60%. There is normal LV segmental wall motion. Transmitral Doppler flow pattern is Grade I-abnormal relaxation pattern. RIGHT VENTRICLE The right ventricle is normal size. The right ventricular systolic function is normal. ATRIA The left atrium size is normal. The right atrium size is normal. The interatrial septum is intact wit h no evidence for an atrial septal defect or patent foramen ovale as noted on 2-D or Doppler imaging. Injection of bubbles documented no interatrial shunt. AORTIC VALVE The aortic valve is not well visualized. Doppler and Color Flow revealed mild aortic regurgitation. T here is no significant aortic valvular stenosis. MITRAL VALVE The mitral valve is normal in structure and function. There is no evidence of mitral valve prolapse. There is no mitral valve stenosis. Doppler and Color-flow revealed mild mitral regurgitation. TRICUSPID VALVE The tricuspid valve is normal in structure and function. Doppler and Color Flow revealed no tricuspid valve regurgitation noted. There is no tricuspid valve stenosis. PULMONIC VALVE The pulmonic valve is not well visualized. Doppler and Color Flow revealed no pulmonic valvular regur gitation. There is no pulmonic valvular stenosis. GREAT VESSELS The aortic root is normal in size. The ascending aorta is not well seen. The IVC is normal in size an d collapses >50% with inspiration. PERICARDIAL EFFUSION There is no evidence of significant pericardial effusion. Critical Notification Critical Value: No <Conclusion> The left ventricular systolic function is normal and the ejection fraction is within normal range. Th e Ejection Fraction is 55-60%. There is normal LV segmental wall motion. The interatrial septum is intact with no evidence for an atrial septal defect or patent foramen ovale as noted on 2-D or Doppler imaging. Injection of bubbles documented no interatrial shunt. Signed by : Tammy Morrow, Electronically Approved : 08/17/2019 14:38:05
--- NOTE | 2019-08-17 17:20 | SSS ---
ADMIT DATE: 08/17/2019 HISTORY OF PRESENT ILLNESS: The patient is a 68-year-old female patient who presented to the Emergency Room of [facility] with acute onset of tingling sensation in her right hand and some slurring of speech at around 1:30 last night. The patient has a history of previous CVA with TPA in 08/10/2016. By the time she arrived to the Emergency Room, she was alert, oriented, able to answer questions, some mild complaint of sensation changes in her right hand fingertips, but no acute new deficits appreciated she reports at the baseline at around 11:30 when she went to bed. She is on Eliquis for her atrial fibrillation, has been compliant with her diabetic and hypertensive medication. She did have a recent fall on of this week due to chronic gait disorder, which is baseline for her. She has not had any recent travel outside the [facility]. No specific ill contact. There are no changes in her medication done recently. The patient normally follows with Dr. Mayo. She has followed at [facility] for cardiac disorders, atrial fibrillation and hypertension. She was evaluated in the Emergency Room and has had lab work, which were unremarkable. She has 3 sets of troponin that are decreasing; first set was 0.117, second was 0.095 and third one 0.073. Has had a CT scan of the head, which basically showed no acute hemorrhage or large territory yeager white loss. She has moderate sized left parietal, small left frontal and small right centrum semiovale encephalomalacia, has had bilateral carotid Doppler ultrasound, showed no hemodynamically significant internal carotid artery stenosis, mild atheromatous plaque bilaterally, most prominent within the carotid bifurcation. Her chest x-ray showed no acute cardiopulmonary process. She was seen in consultation by Dr. Thompson and also the electronic semiconductor processor. She has had an echocardiogram done, which basically showed that her left ventricular systolic function is normal and ejection fraction is within normal range, the ejection fraction is 55-60%. She has normal left ventricular segmental wall motion. The interatrial septum is intact with no evidence of any atrial septal defect or patent foramen ovale as noted in 2-dimensional Doppler imaging. Injection of bubbles documented no interatrial shunt. The patient has also left sided facial droop and therefore, a decision was made to transfer her to [facility] to arrange for an MRI of the brain as well as consult the neurologist. PAST MEDICAL HISTORY: Significant for atrial fibrillation, hypertension, hyperlipidemia, obstructive sleep apnea. She has had history of cerebrovascular accident, peripheral neuropathy, TIA, history of DVT, osteoarthritis, type 2 diabetes mellitus and hypothyroidism. PAST SURGICAL HISTORY: Significant for bilateral total knee arthroplasty. FAMILY HISTORY: Positive for hypertension. SOCIAL HISTORY: She is and lives with her . She does not smoke, drink alcohol or use any recreational drugs. ALLERGIES: She has no known drug allergies. MEDICATIONS: She is currently on following medications: She is on iron 65 mg once a day, apixaban 5 mg twice a day, dofetilide 250 ____ twice a day, simvastatin 20 mg at bedtime, metoprolol tartrate 25 mg twice a day, amlodipine besylate 10 mg once a day, losartan potassium 100 mg once a day, aspirin 81 mg once a day, tramadol 50 mg every 6 hours, gabapentin 300 mg 3 times a day, venlafaxine 75 mg daily, temazepam 15 mg at bedtime, Ambien 10 mg at bedtime as needed, potassium chloride 20 mEq once a day, magnesium oxide 400 mg daily. She is on 8 units of NovoLog insulin before meals and Lantus insulin 40 units at bedtime. She is on Farxiga 10 mg daily and glimepiride 4 mg once a day, levothyroxine 200 mcg once a day, trospium chloride 60 mg daily. REVIEW OF SYSTEMS: As per history of present illness. PHYSICAL EXAMINATION: GENERAL: On arrival to the Emergency Room, she looked well and was clearly in no apparent respiratory distress. No pallor, jaundice, cyanosis or thyromegaly. No jugular venous distention. No limb edema. VITAL SIGNS: Her heart rate was 62, blood pressure 148/73, temperature was 98.4, respiratory rate was 20, and oxygen saturation was 99%. HEAD, EYES, EARS, NOSE AND THROAT: Normocephalic, atraumatic. NECK: Supple. HEART: Showed normal first and second heart sounds. No gallop, rub or murmur. CHEST: Clear to auscultation. No crepitation or rhonchi. ABDOMEN: Distended, soft, nontender. NEUROLOGIC: She was alert, oriented. Apparently, has slurring of speech, some tingling of the fingers of the right hand; however, she was able to walk with a walker. LABORATORY DATA: Her initial lab work showed a serum sodium 138, potassium 5.4, chloride 104, bicarbonate 27, anion gap of 7, BUN 16, creatinine 1.3, estimated GFR was 41 mL per minute. Her glucose was 126, calcium was 8.8, magnesium 2.5. Total bilirubin, AST, ALT, alkaline phosphatase were normal. CK was 61. C-reactive protein was 6. Total beta natriuretic peptide was 532. Total protein was 7, albumin was 3.5. Her white cell count was 7300, hemoglobin 14, hematocrit 44, MCV 92, and platelet count of 175,000. Her prothrombin time, INR and aPTT were normal. D-dimer was high at 1.52. Urinalysis showed the urine was yellow, clear with a pH of 5.5, specific gravity of 1.010. The urine was negative for protein. There was large amount of glucose, negative for ketones. There were moderate amount of blood, negative for nitrite and bilirubin, negative for leukocyte esterase with 11-20 rbc's, rare wbc's, and no bacteria. Her toxic screen was essentially negative. Her chest x-ray showed normal lung volumes, no pulmonary masses or consolidation. The tracheobronchial tree and hilar structures are normal and there is no pleural effusion or pneumothorax. The cardiomediastinal silhouette is normal. The great vessels of thorax are normal. The CT scan of the head showed no acute hemorrhage or large territory yeager white loss, moderate size left parietal, small left frontal and small right centrum semiovale encephalomalacia. Her bilateral carotid Doppler ultrasound showed no hemodynamically significant internal carotid artery stenosis. Vertebral arteries bilaterally demonstrated antegrade flow. She has mild atheromatous plaque bilaterally, most prominent within the carotid bifurcation. The patient was transferred to [facility] as she has left side facial droop and also right sided weakness and dysarthria and having difficulty finding words. She was discharged to continue on following medications, venlafaxine 37.5 mg once a day, ferrous sulfate 325 mg once a day, levothyroxine 175 mcg at bedtime, Ambien 10 mg at bedtime as needed, Lantus insulin 40 units at bedtime, simvastatin 20 mg at bedtime. She is on Humalog insulin 8 units before meals and Tikosyn 250 ____ twice a day, amlodipine 5 mg daily, oxybutynin chloride 5 mg 3 times a day, losartan potassium 100 mg daily, glimepiride 4 mg daily. She is on Farxiga 10 mg daily, tramadol 50 mg every 6 hours, metoprolol tartrate 25 mg twice a day, gabapentin 300 mg 3 times a day, aspirin 81 mg once a day, apixaban 5 mg twice a day, acetaminophen 650 mg every 4 hours, ondansetron 4 mg IV every 4 hours. FINAL DISCHARGE DIAGNOSES: New onset dysarthria and right arm tingling with history of cerebrovascular accident. She has also left sided facial droop. Her carotid Doppler showed no evidence of significant internal carotid artery stenosis. Mild troponin elevation, probably type 2 demand ischemia. Chest pain free. Paroxysmal atrial fibrillation, rate controlled. She is in sinus rhythm on Tikosyn for rhythm maintenance. She is also on Eliquis for stroke prophylaxis. Hypertension, hyperlipidemia, type 2 diabetes, chronic kidney disease, hyperkalemia, hypothyroidism. SIMON VALLE MD DR: KATHERYN/teresa JOB#: [id number] / [id number]
--- NOTE | 2019-08-17 18:22 | NUR ---
NURSING NOTE REPORT CALLED REPORT CALLED TO PHYLICIA AT [facility] [phone]. MARJAN YAN
--- NOTE | 2019-08-17 18:46 | NUR ---
NURSING NOTE TRANSFER PT TRANSFERRED TO [facility] VIA EMS FOR MRI OF BRAIN, REPORT CALLED TO PHYLICIA. WRITTEN COPY OF CHART SENT WITH EMS. PT NOTIFIED. FARRAH PHILLIP.
[2019-08-17] MEDS ORDERED: SIMVASTATIN 20 MG TABLET PO SCH (21:00)
[2019-08-17] MEDS ORDERED: ZOLPIDEM 5 MG TABLET. PO PRN (21:00)
[2019-08-17] MEDS ORDERED: TEMAZEPAM 15 MG CAPSULE PO SCH (21:00)
[2019-08-17] MEDS ORDERED: INSULIN GLARGINE SYRINGE. SQ SCH (21:00)
--- NOTE | 2019-08-17 22:43 | CONS ---
DATE OF CONSULTATION: NEUROLOGIC CONSULTATION REFERRING PHYSICIAN: Dr. Fernando REASON FOR CONSULTATION: Rule out TIA versus stroke. HISTORY OF PRESENT ILLNESS: This is a 68-year-old right-handed female who was admitted to Emergency Room after she presented with chief complaints of acute onset of numbness of the right hand and slurred speech. The patient stated she had stroke in 2017, resulted in right hemiparesis and language dysfunctions and difficulty to speak. Today, the patient was found to have difficulty finding words and completing sentences. The symptoms started around 1:30 this morning when she woke up and she was not able to use CPAP because of numbness and possibly slight weakness of the right hand. The patient stated when she had stroke, she went for speech therapy and rehabilitation and she improved after 6 months and she has been doing fine until this morning. Currently, she denies headaches, chest pain, shortness of breath, palpitation or vertigo. Initial nonenhanced head CT scan revealed 2 old left frontal and parietal infarcts and right hemispheric infarct along with chronic small vessel ischemic changes, otherwise no acute changes. She denies weakness of the upper and lower extremities, diplopia or vertigo. PAST MEDICAL HISTORY: Significant for atrial fibrillation, stroke as described above, coronary artery disease, diabetes mellitus, hypertension, hyperlipidemia, stroke and TIA. Other medical problems include urinary incontinence, arthritis, obstructive sleep apnea, obesity, deep venous thrombosis, peripheral neuropathy in the lower extremities and hypothyroidism. PAST SURGICAL HISTORY: Positive for bilateral knee replacements. FAMILY HISTORY: Father had myocardial infarction and grandmother had a stroke. SOCIAL HISTORY: The patient is . She denies smoking, alcohol drinking, or illicit drug use. CURRENT HOME MEDICATIONS: Amlodipine 10 mg p.o. daily, Eliquis 5 mg b.i.d., aspirin 81 mg chewable 1 tablet daily, Farxiga 10 mg daily, gabapentin 300 mg t.i.d., glimepiride 4 mg daily, insulin, iron 18 mg tablet daily, levothyroxine 200 mcg p.o. daily, losartan 100 mg p.o. daily, magnesium oxide, metoprolol 25 mg b.i.d., potassium 20 mEq 1 tablet daily, simvastatin 20 mg daily, temazepam 15 mg at bedtime for insomnia, tramadol 50 mg q. 6 hours p.r.n. for pain, venlafaxine 75 mg p.o. daily, and Silvadene 10 mg p.r.n. for insomnia. ALLERGIES: No known drug allergies. REVIEW OF SYSTEMS: A 10-point review of system was performed as mentioned above in history of present illness and consistent with slurred speech and difficulty finding words. PHYSICAL EXAMINATION: GENERAL: Obese female, not in acute distress. She weighs 112.5 kilos. VITAL SIGNS: Blood pressure 130/82, respiratory rate 18, pulse is 57, temperature 98.2, oxygen saturation 100% on room air. HEENT: Normocephalic, atraumatic, otherwise unremarkable. NECK: Supple. Negative for carotid bruit, lymphadenopathy or thyromegaly. LUNGS: Clear to A and P. CARDIOVASCULAR: Regular rate and rhythm. Normal S1, S2. There is no S3, S4 or murmur. ABDOMEN: Soft. Bowel sounds positive. EXTREMITIES: Negative for cyanosis, clubbing or edema. NEUROLOGICAL: Mental Status: The patient is alert to herself, but disoriented to date and month or year. The speech is somewhat slurred. There is no language dysfunction. Memory, judgment, and abstract thinking are fair. The patient denies hallucination or delusion. Cranial Nerves: Visual evans are full. The pupils are equal and reactive to light and accommodation; however, the patient has left lazy eye since childhood. The hearing is intact bilaterally. There is no nystagmus. There is no facial motor or sensory deficit. The palate is elevated symmetrically. Sternocleidomastoid muscles are powerful bilaterally. The patient shrugs her shoulders symmetrically, protrudes her tongue in the midline without fasciculation or atrophy. Motor Examination: No focal muscle bulk was seen. The tone is normal. The strength is 4/5 throughout. Sensory Examination: Revealed diminished pinprick and light touch senses over the right face, arm and leg. Sensory examination elsewhere was normal to pinprick, light touch, vibratory and position senses. Deep tendon reflexes were symmetric and hypoactive with absent Achilles responses. Gait: Not tested. The patient uses a cane for ambulation. LABORATORY DATA: CBC revealed white blood cells 7.3 thousand, hemoglobin 14.3, hematocrit 43.7, platelet count 175,000. Chemistry revealed sodium of 138, potassium 5.4, chloride 104, BUN 16, creatinine 1.3, glucose 226, calcium 8.8, magnesium 2.5. Liver enzymes are normal. Troponin level is 0.117 and CRP is high at 6 with elevated NPB at 532. Urinalysis is negative for urinary tract infections. Urine drug screen is negative as well. IMPRESSION: 1. New onset of transient ischemic attack versus stroke, resulted in difficulty finding words and completing sentences and right dense hemisensory deficits, probably from old stroke. However, the patient did have acute onset of difficulty finding words and completing sentences along with memory loss. The patient has multiple risk factors of stroke, includes previous stroke, age, history of atrial fibrillation, coronary artery disease, hypertension, hyperlipidemia and diabetes mellitus. 2. Multiple medical problems as mentioned above. RECOMMENDATIONS: 1. Continue with current management with Eliquis and aspirin. 2. Speech therapy evaluation. 3. Physical therapy evaluation. 4. Carotid Doppler study or CT angio of the neck and head. M Lizzette FANG MD DR: MILLIE/teresa JOB#: [id number] / [id number]
[2019-08-18] MEDS ORDERED: FERROUS SULFATE 325 MG TABLET. PO SCH (08:00)
[2019-08-18] MEDS ORDERED: VENLAFAXINE XR 37.5 MG CAP.ER.24H. PO SCH (09:00)
== END 2019-08-17 18:48 | disposition short-term general hospital (02) | DRG 92 ==
LOC: ER 03:19 → 1 SOUTH 04:30
PROVIDERS: ADMIT Internal Medicine; ATTEND Internal Medicine
DX: R47.1 Dysarthria and anarthria (principal); G45.9 Transient cerebral ischemic attack, unspecified; E03.9 Hypothyroidism, unspecified; E11.22 Type 2 diabetes mellitus with diabetic chronic kidney disease; E78.00 Pure hypercholesterolemia, unspecified; E78.5 Hyperlipidemia, unspecified; E83.42 Hypomagnesemia; E87.5 Hyperkalemia; G47.00 Insomnia, unspecified; I12.9 Hypertensive chronic kidney disease with stage 1 through stage 4 chronic kidney disease, or unspecified chronic kidney disease; I25.10 Atherosclerotic heart disease of native coronary artery without angina pectoris; I48.0 Paroxysmal atrial fibrillation; N18.9 Chronic kidney disease, unspecified; Z79.01 Long term (current) use of anticoagulants; Z79.4 Long term (current) use of insulin; Z79.82 Long term (current) use of aspirin; Z79.899 Other long term (current) drug therapy; Z82.3 Family history of stroke; Z82.49 Family history of ischemic heart disease and other diseases of the circulatory system; Z86.718 Personal history of other venous thrombosis and embolism; Z96.653 Presence of artificial knee joint, bilateral; G47.33 Obstructive sleep apnea (adult) (pediatric); M19.90 Unspecified osteoarthritis, unspecified site; E11.42 Type 2 diabetes mellitus with diabetic polyneuropathy
CPT/HCPCS: 36415; 70450; 71045; 80048; 80061; 80076; 80307; 81001; 82550; 82947; 83605; 83690; 83735; 83880; 84443; 84484; 85025; 85379; 85610; 85730; 86140; 93005; 93306; 93880; 99285; J1815; P9612; 92610; 97116; 97530

== ENCOUNTER 2019-11-29 18:06 | Emergency (ER) | payer MEDICARE ==
[~2019-11-29] VITALS: Ht 160 cm; Wt 104.0 kg
[~2019-11-29 18:06] MED LIST: AMLO-187 PO; APIX5TAB3 PO; ASPI-630 PO; DAPA10TA PO; DOFE250C4 PO; GABA-586 PO; GLIM4TAB8 PO; INSU100I13 SQ; INSU100I17 SQ; IRON18TA PO; LEVO200T5 PO; LOSA100T14 PO; MAGN200T7 PO; METO25TA4 PO; POTA20TA4 PO; SIMV20TA18 PO; TEMA15CA PO; TRAM50TA PO; TROS60CA2 PO; VENL75TA PO; ZOLP10TA PO
--- NOTE | 2019-11-29 18:23 | PHYS DOC ---
Past History Past Medical History: A-Fib, Arthritis, Arrhythmia, CAD, Diabetes, High Cholesterol, Hypertension, Stroke, TIA Past Surgical History: Knee Replacement Additional Past Surgical Histo: rt ankle, rt hip Smoking: Non-smoker Alcohol Use: None Drug Use: None Adult General Chief Complaint Chief Complaint: NEURO SYMPTOMS/DEFICITS [facility] HPI Patient is a 69-year-old female who presents via POV with for suspect stroke. Onset of symptoms was approximately 40 minutes prior to arrival without any known inciting event or trauma. reports noticeable dysarthria/trouble speaking, right lower facial droop, and noticeable motor changes in right upper extremity with mild changes noted in right lower extremity. Patient typically able to perform all the activities of daily living but since onset of symptoms has had difficulties walking and caring for herself prompting to transport patient to our facility for evaluation. Patient has extensive past medical history significant for factor V Leiden, paroxysmal atrial fibrillation for which she is on Pradaxa, recently diagnosed pancreatic cancer with unknown staging, and history of CVA in the past with most recent CVA approximately 3 months ago. Per , patient has been compliant with all prescribed medications, has not had any recent COVID-19 contact, recent travel, recent febrile illness or other concerning symptoms Review of Systems Review of Systems Fourteen body systems of review of systems have been reviewed. See HPI for pertinent positives and negative responses, other thomas all other systems are negative, non-pertinent or non-contributory Allergies Allergies Allergies Coded Allergies Type Severity Reaction Last Updated Verified No Known Drug Allergies 08/10/16 No Physical Exam Physical Exam Constitutional: Well developed, well nourished, no acute distress, non-toxic appearance. HENT: Normocephalic, atraumatic, bilateral external ears normal, oropharynx moist, poor dentition, no oral exudates, nose normal. Eyes: PERRLA, EOMI, conjunctiva normal, no discharge. Neck: Normal range of motion, no tenderness, supple, no stridor. Cardiovascular: Heart rate regular, sinus rhythm, no murmurs rubs or gallops Lungs & Thorax: Bilateral breath sounds clear to auscultation Abdomen: Bowel sounds normal, protuberant, soft, no tenderness, no masses, no pulsatile masses. Nonsurgical abdomen, no peritoneal signs Skin: Warm, dry, no erythema, no rash. Back: No tenderness, no CVA tenderness. Extremities: No tenderness, no cyanosis, no clubbing, no edema. Neurologic: Alert and oriented X 3, NIH stroke scale 15 as documented below, obvious focal deficits noted to right lower face without any involvement of bilateral forehead, no airway involvement Psychologic: Affect normal, judgement normal, anxious mood Current Patient Data Vital Signs Vital Signs Date Time Temp Pulse Resp B/P (MAP) Pulse Ox O2 Delivery O2 Flow Rate FiO2 11/29/19 18:10 98.4 64 18 136/83 (100) 99 Room Air Lab Results Laboratory Tests Test 11/29/19 18:17 11/29/19 18:20 11/29/19 19:10 Glucose (Fingerstick) 402 mg/dL (70-99) White Blood Count 7.3 x10^3/uL (4.0-11.0) Red Blood Count 4.44 x10^6/uL (3.50-5.40) Hemoglobin 13.3 g/dL (12.0-15.5) Hematocrit 41.5 % (36.0-47.0) Mean Corpuscular Volume 93 fL (79-100) Mean Corpuscular Hemoglobin 30 pg (25-35) Mean Corpuscular Hemoglobin Concent 32 g/dL (31-37) Red Cell Distribution Width 14.4 % (11.5-14.5) Platelet Count 188 x10^3/uL (140-400) Neutrophils (%) (Auto) 54 % (31-73) Lymphocytes (%) (Auto) 35 % (24-48) Monocytes (%) (Auto) 8 % (0-9) Eosinophils (%) (Auto) 1 % (0-3) Basophils (%) (Auto) 1 % (0-3) Neutrophils # (Auto) 4.0 x10^3uL (1.8-7.7) Lymphocytes # (Auto) 2.6 x10^3/uL (1.0-4.8) Monocytes # (Auto) 0.6 x10^3/uL (0.0-1.1) Eosinophils # (Auto) 0.1 x10^3/uL (0.0-0.7) Basophils # (Auto) 0.1 x10^3/uL (0.0-0.2) Prothrombin Time 10.4 SEC (9.4-11.4) Prothromb Time International Ratio 1.0 (0.9-1.1) Activated Partial Thromboplast Time 24 SEC (23-33) Sodium Level 135 mmol/L (136-145) Potassium Level 4.0 mmol/L (3.5-5.1) Chloride Level 100 mmol/L (98-107) Carbon Dioxide Level 27 mmol/L (21-32) Anion Gap 8 (6-14) Blood Urea Nitrogen 14 mg/dL (7-20) Creatinine 1.2 mg/dL (0.6-1.0) Estimated GFR (Cockcroft-Gault) 44.7 BUN/Creatinine Ratio 12 (6-20) Glucose Level 357 mg/dL (70-99) Calcium Level 9.5 mg/dL (8.5-10.1) Total Bilirubin 1.3 mg/dL (0.2-1.0) Aspartate Amino Transf (AST/SGOT) 27 U/L (15-37) Alanine Aminotransferase (ALT/SGPT) 35 U/L (14-59) Alkaline Phosphatase 101 U/L (46-116) Troponin I Quantitative < 0.017 ng/mL (0-0.055) Total Protein 7.5 g/dL (6.4-8.2) Albumin 3.1 g/dL (3.4-5.0) Albumin/Globulin Ratio 0.7 (1.0-1.7) Urine Opiates Screen Neg (NEG) Urine Methadone Screen Neg (NEG) Urine Barbiturates Neg (NEG) Urine Phencyclidine Screen Neg (NEG) Urine Amphetamine/Methamphetamine Neg (NEG) Urine Benzodiazepines Screen Neg (NEG) Urine Cocaine Screen Neg (NEG) Urine Cannabinoids Screen Neg (NEG) Urine Ethyl Alcohol Neg (NEG) EKG EKG EKG ordered and interpreted by myself at 1822 hrs. as sinus rhythm at 91 bpm, unremarkable intervals, no axis deviation, no acute ischemic findings, no STEMI Radiology/Procedures Radiology/Procedures PROCEDURE: CT CODE STROKE HEAD WO Exam: CT head INDICATION: Stroke TECHNIQUE: Sequential axial images through the head were obtained without the administration of IV contrast. Comparisons: 08/17/2019 FINDINGS: No focal parenchymal lesion or hemorrhage is identified. There is no midline shift or sulcal effacement. Hypodensity in the left occipital parietal lobe which has increased when compared to the prior exam on 08/17/2019. The ventricular system is within normal limits without compression hydrocephalus. The basal cisterns are well maintained. The visualized portions of the paranasal sinuses and mastoid air cells are well-pneumatized. No acute fractures. IMPRESSION: Increased size of the infarct in the left occipital parietal lobe. Excluding a subacute or acute component is difficult to exclude. Relation with MRI is recommended. No acute hemorrhage is seen. Exposure: One or more of the following in the visualized dose reduction techniques were utilized for this examination: 1. Automated exposure control 2. Adjustment of the MA and/or KV according to patient size Use of iterative of reconstructive technique PROCEDURE: CHEST AP ONLY INDICATION: Reason: left facial droop / Spl. Instructions: / History: COMPARISON: August 17, 2019 FINDINGS: Single view of chest obtained. No focal airspace consolidation or pulmonary edema. Cardiac silhouette is similar to prior. Degenerative changes of the shoulders. Angulation of the midshaft of the right clavicle which could be from a prior fracture with callus. IMPRESSION: * No focal airspace consolidation or edema. Electronically signed by: Leandro Croft MD (11/29/2019 7:01 PM) [id number] PROCEDURE: CT ANGIOGRAPHY HEAD AND NECK Exam: CTA head and neck INDICATION: Stroke, dysarthria TECHNIQUE: Sequential axial images through the head and neck obtained following the administration of 75 mL of Omni 350 IV contrast. Sagittal and coronal reformatted images were reconstructed from the axial data and reviewed. 3-D reformatted images were reconstructed from the axial data and reviewed. Comparisons: CT head without contrast same day FINDINGS: CTA NECK: Visualized portions of the thoracic aorta are unremarkable. Standard three-vessel aortic arch anatomy. Right common carotid artery is patent without evidence of stenosis, occlusion or aneurysm. Minimal plaque at the origin of the right internal carotid artery without significant stenosis. Left common carotid artery is patent without evidence of stenosis, occlusion or aneurysm. Minimal plaque at the origin of the left internal carotid artery without significant stenosis. Right vertebral artery is patent to the basilar confluence without evidence of stenosis, occlusion or aneurysm. Left vertebral artery is patent to basilar confluence without evidence of stenosis, occlusion or aneurysm. Visualized soft tissues are unremarkable. CTA HEAD: Intracranial segments of the right internal carotid artery are patent without evidence of stenosis, occlusion or aneurysm. Right MCA is patent. Right AMANUEL is patent. Intracranial segments of the left internal carotid artery are patent without evidence of stenosis, occlusion or aneurysm. Left MCA is patent. Left AMANUEL is patent. Basilar artery is patent without evidence of stenosis, occlusion or aneurysm. search optimization analyst are patent bilaterally. IMPRESSION: 1. No large vessel occlusion. 2. Minimal plaque at the origin of the internal carotid arteries bilaterally without significant stenosis. Exposure: One or more of the following in the visualized dose reduction techniques were utilized for this examination: 1. Automated exposure control 2. Adjustment of the MA and/or KV according to patient size 3. Use of iterative of reconstructive technique Heart Score HEART Score for Chest Pain: HEART Score for Chest Pain Response (Comments) Value History Slighlty/Non-Suspicious 0 ECG Normal 0 Age > 65 2 Total 2 Risk Factors: Risk Factors: DM, Current or recent (<one month) smoker, HTN, HLP, family history of CAD, obesity. Risk Scores: Risk Factors: DM, Current or recent (<one month) smoker, HTN, HLP, family history of CAD, obesity. Course & Med Decision Making Course & Med Decision Making Patient seen on immediate ER arrival and code stroke was initiated NIH stroke scale performed while on CT scan table and was 15 Limited history obtained from patient and comprehensive physical exam performed. Subsequent history obtained from patient spouse in waiting room Comprehensive diagnostic work-up ordered and reviewed Given Case complexity in fact that patient had been seen and managed at [facility] for prior stroke, [facility] neurology attending Dr. Kelly was contacted at 1846 hours and case was discussed Joint decision was made to pursue CTA head and neck while in our ER that was ultimately negative for any acute abnormalities. Patient not a TPA candidate given current anticoagulated state and recent stroke in past 3 months Clinical course discussed with patient and , joint decision for admission for further medical management. Patient and requesting transfer to [facility] at this time, I contacted [facility] again at 2039 regarding this and they were amenable to transport for further medical management All questions and concerns addressed prior to ER departure to [facility] in stable condition Dragon Disclaimer Dragon Disclaimer This electronic medical record was generated, in whole or in part, using a voice recognition dictation system. NIH Stroke Scale: NIH Stroke Scale Response (Comments) Value Level of Consciousness: 0 Alert/Responsive 0 LOC Questions: 2 Answers neither correct 2 LOC Commands: 1 Performs one task 1 Best Gaze: 1 Partial gaze palsy 1 Visual: 1 Partial hemianopia 1 Facial Palsy: 2 Partial paralysis 2 Motor - Left Arm 0 No drift 0 Motor - Right Arm 1 Drifts but can hold 1 Motor - Left Leg 0 No drift 0 Motor: Right Leg 1 Drift but can hold 1 Limb Ataxia: 2 Two limbs 2 Sensory: 1 Mid to moderate loss 1 Best Language: 1 Mild to mod aphasia 1 Dysathria: 1 Mild to moderate 1 Extinction and Inattention: 1 One sensory modality 1 Total 15 Departure Departure: Impression: Primary Impression: Ischemic stroke Additional Impressions: History of pancreatic cancer Insulin dependent diabetes mellitus History of stroke Morbid obesity Factor V Leiden Chronic anticoagulation Disposition: 09 ADMITTED INPT THIS HOSP (transfer to [facility]) Admitting Physician: Other (Dr. Marroquin) Condition: STABLE Referrals: QUE ALMEIDA MD (PCP) Problem Qualifiers MATY SORIA DO Nov 29, 2019 18:23
--- NOTE | 2019-11-29 18:24 | EKG ---
[address] [address] Test Date: 2019-11-29 Test Time: 18:16:07 Pat Name: KIERSTEN RENTERIA Department: Room: Gender: F Car Repair Supervisor: TOLU : 1950 Requested By: MATY SORIA Order Number: [id number] Reading MD: Adrien Rooney Measurements Intervals [place] Rate: 91 P: 213 CT: 162 QRS: 4 QRSD: 80 T: 29 QT: 366 QTc: 452 Interpretive Statements SINUS RHYTHM NORMAL ECG Electronically Signed On 12-14-2019 17:22:45 PHARMACY PICKING TECHNICIAN by Adrien Rooney
--- NOTE | 2019-11-29 18:29 | RAD ---
Exam: CT head INDICATION: Stroke TECHNIQUE: Sequential axial images through the head were obtained without the administration of IV contrast. Comparisons: 08/17/2019 FINDINGS: No focal parenchymal lesion or hemorrhage is identified. There is no midline shift or sulcal effacement. Hypodensity in the left occipital parietal lobe which has increased when compared to the prior exam on 08/17/2019. The ventricular system is within normal limits without compression hydrocephalus. The basal cisterns are well maintained. The visualized portions of the paranasal sinuses and mastoid air cells are well-pneumatized. No acute fractures. IMPRESSION: Increased size of the infarct in the left occipital parietal lobe. Excluding a subacute or acute component is difficult to exclude. Relation with MRI is recommended. No acute hemorrhage is seen. Exposure: One or more of the following in the visualized dose reduction techniques were utilized for this examination: 1. Automated exposure control 2. Adjustment of the MA and/or KV according to patient size Use of iterative of reconstructive technique FOR INTERNAL CODING PURPOSES Critical result: Findings discussed with Dr. Lozano at 11/29/2019 6:20 PM. RESULT CODE: (C) Electronically signed by: Skip Nick MD (11/29/2019 6:26 PM) [facility]
[2019-11-29 18:46] LABS: BASO # 0.1 x10^3/uL (0.0-0.2); BASO % 1 % (0-3); EOS # 0.1 x10^3/uL (0.0-0.7); EOS % 1 % (0-3); HEMATOCRIT 41.5 % (36.0-47.0); HEMOGLOBIN 13.3 g/dL (12.0-15.5); LYMPH # 2.6 x10^3/uL (1.0-4.8); LYMPH % 35 % (24-48); MEAN CORPUSCULAR HEMOGLOBIN 30 pg (25-35); MEAN CORPUSCULAR HGB CONC 32 g/dL (31-37); MEAN CORPUSCULAR VOLUME 93 fL (79-100); MONO # 0.6 x10^3/uL (0.0-1.1); MONO % 8 % (0-9); NEUT % 54 % (31-73); PLATELET COUNT 188 x10^3/uL (140-400); RED BLOOD COUNT 4.44 x10^6/uL (3.50-5.40); RED CELL DISTRIBUTION WIDTH 14.4 % (11.5-14.5); WHITE BLOOD COUNT 7.3 x10^3/uL (4.0-11.0)
[2019-11-29 18:56] LABS: CALCIUM 9.5 mg/dL (8.5-10.1); CREATININE 1.2 mg/dL (0.6-1.0); GFR 44.7
[2019-11-29 19:01] LABS: ALBUMIN 3.1 g/dL (3.4-5.0); ALBUMIN/GLOBULIN RATIO 0.7 (1.0-1.7); TOTAL BILIRUBIN 1.3 mg/dL (0.2-1.0); TOTAL PROTEIN 7.5 g/dL (6.4-8.2)
--- NOTE | 2019-11-29 19:04 | RAD ---
INDICATION: Reason: left facial droop / Spl. Instructions: / History: COMPARISON: August 17, 2019 FINDINGS: Single view of chest obtained. No focal airspace consolidation or pulmonary edema. Cardiac silhouette is similar to prior. Degenerative changes of the shoulders. Angulation of the midshaft of the right clavicle which could be from a prior fracture with callus. IMPRESSION: * No focal airspace consolidation or edema. Electronically signed by: Leandro Croft MD (11/29/2019 7:01 PM) [id number]
[2019-11-29] MEDS ORDERED: IOHEXOL 350 MG/ML 100 ML VIAL. IV ONE (19:30)
[2019-11-29 19:51] LABS: AMPHETAMINE/METHAMPHETAMINE NEG (NEG); BARBITURATES NEG (NEG); BENZODIAZEPINES NEG (NEG); CANNABINOIDS NEG (NEG); COCAINE NEG (NEG); METHADONE NEG (NEG); OPIATES NEG (NEG); PHENCYCLIDINE NEG (NEG)
[2019-11-29] MEDS ORDERED: INSULIN REGULAR 100 UNIT/ML 3ML VIAL. IV ONE (20:00)
[2019-11-29 20:11] LABS: BILIRUBIN,URINE NEG (NEG); CLARITY,URINE CLEAR; COLOR,URINE YELLOW; GLUCOSE,URINE 100 mg/dL (NEG); NITRITE,URINE NEG (NEG); UROBILINOGEN,URINE 0.2 mg/dL (0.2 mg/dL)
[2019-11-29 20:12] LABS: BACTERIA,URINE 0 /HPF (0-FEW); RBC,URINE 0 /HPF (0-2); SQUAMOUS EPITHELIAL CELL,UR MOD /LPF; WBC,URINE 0 /HPF (0-4)
--- NOTE | 2019-11-29 20:32 | RAD ---
Exam: CTA head and neck INDICATION: Stroke, dysarthria TECHNIQUE: Sequential axial images through the head and neck obtained following the administration of 75 mL of Omni 350 IV contrast. Sagittal and coronal reformatted images were reconstructed from the axial data and reviewed. 3-D reformatted images were reconstructed from the axial data and reviewed. Comparisons: CT head without contrast same day FINDINGS: CTA NECK: Visualized portions of the thoracic aorta are unremarkable. Standard three-vessel aortic arch anatomy. Right common carotid artery is patent without evidence of stenosis, occlusion or aneurysm. Minimal plaque at the origin of the right internal carotid artery without significant stenosis. Left common carotid artery is patent without evidence of stenosis, occlusion or aneurysm. Minimal plaque at the origin of the left internal carotid artery without significant stenosis. Right vertebral artery is patent to the basilar confluence without evidence of stenosis, occlusion or aneurysm. Left vertebral artery is patent to basilar confluence without evidence of stenosis, occlusion or aneurysm. Visualized soft tissues are unremarkable. CTA HEAD: Intracranial segments of the right internal carotid artery are patent without evidence of stenosis, occlusion or aneurysm. Right MCA is patent. Right AMANUEL is patent. Intracranial segments of the left internal carotid artery are patent without evidence of stenosis, occlusion or aneurysm. Left MCA is patent. Left AMANUEL is patent. Basilar artery is patent without evidence of stenosis, occlusion or aneurysm. clinical education specialist are patent bilaterally. IMPRESSION: 1. No large vessel occlusion. 2. Minimal plaque at the origin of the internal carotid arteries bilaterally without significant stenosis. Exposure: One or more of the following in the visualized dose reduction techniques were utilized for this examination: 1. Automated exposure control 2. Adjustment of the MA and/or KV according to patient size 3. Use of iterative of reconstructive technique FOR INTERNAL CODING PURPOSES Critical result: Findings discussed with MATY SORIA at 11/29/2019 8:22 PM. RESULT CODE: (C) Electronically signed by: Skip Nick MD (11/29/2019 8:29 PM) [facility]
[2019-11-29 22:15] VITALS: BP 150/81
== END 2019-11-29 22:30 | disposition admitted as inpatient to this hospital (09) ==
LOC: ER 18:06
DX: I63.9 Cerebral infarction, unspecified (principal); R47.1 Dysarthria and anarthria; R29.810 Facial weakness; E11.65 Type 2 diabetes mellitus with hyperglycemia; E66.01 Morbid (severe) obesity due to excess calories; D68.51 Activated protein C resistance; I48.91 Unspecified atrial fibrillation; M19.90 Unspecified osteoarthritis, unspecified site; I25.10 Atherosclerotic heart disease of native coronary artery without angina pectoris; E78.00 Pure hypercholesterolemia, unspecified; I10 Essential (primary) hypertension; Z86.73 Personal history of transient ischemic attack (TIA), and cerebral infarction without residual deficits; Z85.07 Personal history of malignant neoplasm of pancreas; Z68.41 Body mass index [BMI] 40.0-44.9, adult; Z79.01 Long term (current) use of anticoagulants; Z79.899 Other long term (current) drug therapy
CPT/HCPCS: 36415; 51702; 70450; 70496; 70498; 71045; 80053; 80307; 81001; 82947; 84484; 85025; 85610; 85730; 93005; 96374; 99285; J1815; Q9967

== ENCOUNTER 2020-01-09 16:02 | Observation (INO) | payer MEDICARE ==
[~2020-01-09] VITALS: Ht 160 cm; Wt 109.7 kg
[2020-01-09] MEDS ORDERED: DEXTROSE 50% 25 GM / 50ML DISP.SYRIN. IV ONE ×2 (16:15→18:45)
[2020-01-09 16:58] LABS: BASO % 1 % (0-3); EOS % 1 % (0-3); HEMATOCRIT 42.5 % (36.0-47.0); HEMOGLOBIN 13.4 g/dL (12.0-15.5); LYMPH % 22 % (24-48); MEAN CORPUSCULAR HEMOGLOBIN 29 pg (25-35); MEAN CORPUSCULAR HGB CONC 31 g/dL (31-37); MEAN CORPUSCULAR VOLUME 93 fL (79-100); MONO # 0.3 x10^3/uL (0.0-1.1); MONO % 7 % (0-9); NEUT % 69 % (31-73); PLATELET COUNT 201 x10^3/uL (140-400); RED BLOOD COUNT 4.58 x10^6/uL (3.50-5.40); RED CELL DISTRIBUTION WIDTH 14.9 % (11.5-14.5); WHITE BLOOD COUNT 4.4 x10^3/uL (4.0-11.0)
--- NOTE | 2020-01-09 17:03 | PHYS DOC ---
Past History Past Medical History: Cancer, CVA, Diabetes, Stroke Additional Past Medical Histor: pancreatic cancer stage four with mets to liver and lymph nodes Past Surgical History: No Surgical History Additional Past Surgical Histo: rt ankle, rt hip Smoking: Non-smoker Alcohol Use: None Drug Use: None Adult General Chief Complaint Chief Complaint: ALTERED MENTAL STATUS HPI HPI Patient is a 69-year-old female who presents via EMS for hypoactive delirium. Patient with extensive past medical history is a full code and lives at home with who provides majority of her care. Nonetheless, patient was being cared for by her and had numerous family members over today to see and care for her, she has been normal. Later afternoon approximately 2 PM c henry to check on patient who is a little more tired than usual which concerned him. She denied any pain, denied any new neurologic/motor/sensory problems, just stated she felt weak and more lethargic than usual. She did not have the strength to eat and/or take her daily medications today. EMS was subsequently called on scene to evaluate patient. In the field, she was hemodynamically stable but found to have a fingerstick blood glucose level of 64. She was ultimately given 10 g carbohydrate solution that improved patient's sugar level. It subsequently dropped again on recheck and an additional 10 g carbohydrate solution was given without any improvement greater than 100 prior to ER arrival. On arrival, patient denies any acute symptoms but continues to state she is fatigued and weak. came later in visit and helps provide additional information. He confirmed patient was a full code. He then disclosed that patient has stage IV pancreatic cancer with mets to liver and lymph nodes, there is no plan for treatment and all care is palliative at this time. There have been no changes in home medication, patient received all medications as scheduled yesterday but has not taken any today. Patient received her long- acting insulin, Tresiba, yesterday evening and subsequently has not eaten any food today. Review of Systems Review of Systems Fourteen body systems of review of systems have been reviewed. See HPI for pertinent positives and negative responses, other thomas all other systems are negative, non-pertinent or non-contributory Current Medications Current Medications Current Medications Medications (Trade) Dose Ordered Sig/Debora Start Time Stop Time Status Last Admin Dose Admin Dextrose (Dextrose 50%-Water Syringe) 25 gm 1X ONCE 01/09/20 16:15 01/09/20 16:19 DC 01/09/20 16:17 25 GM Allergies Allergies Allergies Coded Allergies Type Severity Reaction Last Updated Verified No Known Drug Allergies 08/10/16 No Physical Exam Physical Exam Constitutional: Well developed, well nourished, no acute distress, non-toxic appearance. HENT: Normocephalic, atraumatic, bilateral external ears normal, oropharynx dry, no oral exudates, nose normal. Eyes: PERRLA, EOMI, conjunctiva normal, no discharge. Left eye exotropia present Neck: Normal range of motion, no tenderness, supple, no stridor. Cardiovascular: Heart rate regular, sinus rhythm, no murmurs rubs or gallops Lungs & Thorax: No respiratory distress or accessory muscle use, breath sounds diminished bilaterally due to body habitus but clear otherwise to auscultation Abdomen: Bowel sounds normal, soft, no tenderness, no masses, no pulsatile masses. Nonsurgical abdomen, no peritoneal signs Skin: Warm, dry, no erythema, no rash. Back: No tenderness, no CVA tenderness. Extremities: No tenderness, no cyanosis, no clubbing, ROM intact, no edema. Neurologic: Alert and oriented X 3, grossly normal motor & sensory function, patient has focal deficits from prior CVA that are at baseline per Psychologic: Affect normal, judgement normal, mood normal. Confirmed by who is at bedside during examination Current Patient Data Vital Signs Vital Signs Date Time Temp Pulse Resp B/P (MAP) Pulse Ox O2 Delivery O2 Flow Rate FiO2 01/09/20 16:39 98.0 67 18 127/61 (83) 100 Lab Results Laboratory Tests Test 01/09/20 16:05 01/09/20 16:30 01/09/20 17:04 01/09/20 17:38 Glucose (Fingerstick) 65 mg/dL (70-99) 75 mg/dL (70-99) White Blood Count 4.4 x10^3/uL (4.0-11.0) Red Blood Count 4.58 x10^6/uL (3.50-5.40) Hemoglobin 13.4 g/dL (12.0-15.5) Hematocrit 42.5 % (36.0-47.0) Mean Corpuscular Volume 93 fL (79-100) Mean Corpuscular Hemoglobin 29 pg (25-35) Mean Corpuscular Hemoglobin Concent 31 g/dL (31-37) Red Cell Distribution Width 14.9 % (11.5-14.5) Platelet Count 201 x10^3/uL (140-400) Neutrophils (%) (Auto) 69 % (31-73) Lymphocytes (%) (Auto) 22 % (24-48) Monocytes (%) (Auto) 7 % (0-9) Eosinophils (%) (Auto) 1 % (0-3) Basophils (%) (Auto) 1 % (0-3) Neutrophils # (Auto) 3.0 x10^3uL (1.8-7.7) Lymphocytes # (Auto) 1.0 x10^3/uL (1.0-4.8) Monocytes # (Auto) 0.3 x10^3/uL (0.0-1.1) Eosinophils # (Auto) 0.0 x10^3/uL (0.0-0.7) Basophils # (Auto) 0.0 x10^3/uL (0.0-0.2) Ammonia 12 mcmol/L (11-34) Troponin I Quantitative 0.019 ng/mL (0-0.055) Sodium Level 137 mmol/L (136-145) Potassium Level 4.4 mmol/L (3.5-5.1) Chloride Level 104 mmol/L (98-107) Carbon Dioxide Level 26 mmol/L (21-32) Anion Gap 7 (6-14) Blood Urea Nitrogen 9 mg/dL (7-20) Creatinine 1.0 mg/dL (0.6-1.0) Estimated GFR (Cockcroft-Gault) 55.1 BUN/Creatinine Ratio 9 (6-20) Glucose Level 255 mg/dL (70-99) Calcium Level 8.3 mg/dL (8.5-10.1) Total Bilirubin 0.4 mg/dL (0.2-1.0) Aspartate Amino Transf (AST/SGOT) 36 U/L (15-37) Alanine Aminotransferase (ALT/SGPT) 29 U/L (14-59) Alkaline Phosphatase 70 U/L (46-116) Total Protein 6.0 g/dL (6.4-8.2) Albumin 2.3 g/dL (3.4-5.0) Albumin/Globulin Ratio 0.6 (1.0-1.7) Test 01/09/20 18:42 01/09/20 19:47 01/09/20 20:39 01/09/20 22:00 Glucose (Fingerstick) 53 mg/dL (70-99) 61 mg/dL (70-99) 160 mg/dL (70-99) 139 mg/dL (70-99) Test 01/10/20 00:27 01/10/20 05:37 Glucose (Fingerstick) 113 mg/dL (70-99) 82 mg/dL (70-99) EKG EKG EKG ordered and interpreted by myself at 1735 hrs. as sinus rhythm at 71 bpm, unremarkable intervals, no axis deviation, no acute ischemic findings, no STEMI Radiology/Procedures Radiology/Procedures CT scan of the head without contrast 01/09/2020 Clinical History: Altered mental status. Technique: Unenhanced, contiguous, 5 mm axial sections were obtained through the head. One or more of the following individualized dose reduction techniques were utilized for this study: 1. Automated exposure control. 2. Adjustment of the mA and/or kV according to patient size. 3. Use of iterative reconstruction technique. Findings: Comparison study is dated 11/29/2019 . There is generalized parenchymal atrophy. Areas of decreased attenuation are seen within the periventricular and subcortical white matter of both cerebral hemispheres consistent with areas of small vessel ischemic disease. An area encephalomalacia is again seen involving the left posterior temporal/left parietal lobe. No acute parenchymal abnormality is seen. No extra-axial fluid collection is noted. No skull fracture is seen. Impression: No acute intracranial abnormality is seen. Electronically signed by: Gerardo Romero MD (01/09/2020 5:20 PM) [id number] PORTABLE CHEST 1V Clinical indications: Altered mental status. Weakness. Shortness of air. COMPARISON: November 29, 2019. Findings: No acute lung infiltrate or pleural effusion or pulmonary edema or lung mass or pneumothorax is seen. The heart size, pulmonary vasculature, mediastinum and both bonnie are unremarkable. Old healed fracture of the midshaft of the right clavicle is seen. Impression: No acute radiographic abnormality is seen. Electronically signed by: Kasi Spence MD (01/09/2020 5:16 PM) [id number] Heart Score HEART Score for Chest Pain: HEART Score for Chest Pain Response (Comments) Value History Slighlty/Non-Suspicious 0 ECG Normal 0 Age > 65 2 Risk Factors >3 Risk Factors or Hx CAD 2 Troponin < Normal Limit 0 Total 4 Risk Factors: Risk Factors: DM, Current or recent (<one month) smoker, HTN, HLP, family his tory of CAD, obesity. Risk Scores: Risk Factors: DM, Current or recent (<one month) smoker, HTN, HLP, family history of CAD, obesity. Course & Med Decision Making Course & Med Decision Making ABCs unremarkable Pertinent Labs and Imaging studies reviewed. (See chart for details) Patient with poor prognosis of pancreatic cancer with metastatic disease he remains a full code continuing to have symptomatic hypoglycemia due to insulin administration night prior without any food consumption today. She is not fit for discharge home as who provides all care is not fit to adequately monitor and intervene. I discussed case with Dr. Pereyra, hospitalist at [facility] who agreed to admission under his care for ongoing medical management. I discussed plan of care with patient and who were amenable to plan. Patient stabilized satisfactorily prior to ER transport to [facility] for continued management Dragon Disclaimer Dragon Disclaimer This electronic medical record was generated, in whole or in part, using a voice recognition dictation system. Departure Departure: Impression: Primary Impression: Hypoglycemia due to type 2 diabetes mellitus Additional Impression: Primary pancreatic cancer with metastasis to other site Disposition: ADMITTED INPT THIS HOSP Admitting Physician: Yonis Pereyra Condition: STABLE Referrals: QUE ALMEIDA MD (PCP) Problem Qualifiers MATY SORIA DO Jan 09, 2020 17:03
--- NOTE | 2020-01-09 17:19 | RAD ---
PORTABLE CHEST 1V Clinical indications: Altered mental status. Weakness. Shortness of air. COMPARISON: November 29, 2019. Findings: No acute lung infiltrate or pleural effusion or pulmonary edema or lung mass or pneumothorax is seen. The heart size, pulmonary vasculature, mediastinum and both bonnie are unremarkable. Old healed fracture of the midshaft of the right clavicle is seen. Impression: No acute radiographic abnormality is seen. Electronically signed by: Kasi Spence MD (01/09/2020 5:16 PM) [id number]
--- NOTE | 2020-01-09 17:23 | RAD ---
CT scan of the head without contrast 01/09/2020 Clinical History: Altered mental status. Technique: Unenhanced, contiguous, 5 mm axial sections were obtained through the head. One or more of the following individualized dose reduction techniques were utilized for this study: 1. Automated exposure control. 2. Adjustment of the mA and/or kV according to patient size. 3. Use of iterative reconstruction technique. Findings: Comparison study is dated 11/29/2019 . There is generalized parenchymal atrophy. Areas of decreased attenuation are seen within the periventricular and subcortical white matter of both cerebral hemispheres consistent with areas of small vessel ischemic disease. An area encephalomalacia is again seen involving the left posterior temporal/left parietal lobe. No acute parenchymal abnormality is seen. No extra-axial fluid collection is noted. No skull fracture is seen. Impression: No acute intracranial abnormality is seen. Electronically signed by: Gerardo Romero MD (01/09/2020 5:20 PM) [id number]
--- NOTE | 2020-01-09 17:55 | EKG ---
[address] [address] Test Date: 2020-01-09 Test Time: 17:31:27 Pat Name: KIERSTEN RENTERIA Department: Room: Gender: F White Sugar Boiler: YOVANI : 1950 Requested By: MATY SORIA Order Number: [id number] Reading MD: Adrien Rooney Measurements Intervals [place] Rate: 71 P: 90 MI: 198 QRS: 23 QRSD: 82 T: 31 QT: 420 QTc: 457 Interpretive Statements SINUS RHYTHM Electronically Signed On 01-11-2020 10:43:08 PIECE MARKER SMALL ARMS by Adrien Rooney
[2020-01-09 18:22] LABS: CALCIUM 8.3 mg/dL (8.5-10.1); GFR 55.1; POTASSIUM 4.4 mmol/L (3.5-5.1)
[2020-01-09 18:28] LABS: ALBUMIN 2.3 g/dL (3.4-5.0); ALBUMIN/GLOBULIN RATIO 0.6 (1.0-1.7); TOTAL BILIRUBIN 0.4 mg/dL (0.2-1.0)
[2020-01-09 18:55] VITALS: BP 128/55
[2020-01-09 20:00] VITALS: BP 149/67
--- NOTE | 2020-01-09 20:00 | NUR ---
Pt admitted around 1845 via EMS from ER to ICU bed4. Pt presented Alert and oriented X3, pt has significant aphasia from her previous stroke. A full assessment completed and oriented pt to unit, nurse, call light and plan of care. V/U stated. Pt very tearful because of having to be admitted and stated that she absolutely only staying one night and is going home tomorrow regardless of anything else. Spoke with over the phone and reviewed pts history. said she had [facility] in [facility] her [facility] and had only been back home X1 week. He also stated that opted not to treat the cancer due to the severity of it. Pt is receiving Home Health from [facility], which includes wound care for pts coccyx wound. Discussed plan of care. V/U stated.
[2020-01-09 21:00] VITALS: BP 145/69
[2020-01-09 22:00] VITALS: BP 138/74
[2020-01-09 23:00] VITALS: BP 128/47
[2020-01-10] VITALS: BP 120/47
[2020-01-10 01:00] VITALS: BP 144/58
[2020-01-10 02:00] VITALS: BP 123/80
[2020-01-10 03:00] VITALS: BP 140/63
--- NOTE | 2020-01-10 04:00 | NUR ---
Pt upset about still being here and is crying and wanting to go home. Pt is refusing BPs, states she does not want them done anymore.
[2020-01-10] MEDS ORDERED: CHOL500016 PO (06:23)
[2020-01-10] MEDS ORDERED: INSU100V37 SQ (06:23)
[2020-01-10] MEDS ORDERED: ONDA4TAB12 PO (06:23)
[2020-01-10] MEDS ORDERED: MAGN250T10 PO (06:23)
[2020-01-10] MEDS ORDERED: LEVO150T5 PO (06:23)
[2020-01-10 07:00] VITALS: BP 120/68
[2020-01-10] MEDS ORDERED: ENOX40DI SQ (07:09)
--- NOTE | 2020-01-10 08:00 | NUR ---
pt is upset about still being here, she doesn't want to be here. Was able to calm pt down, explaining that Dr Pereyra will be around shortly to see her. She states she is going home today no matter what Roddy Melendez says. Pt calls constantly to discuss everything and then has conference calls with her sister and . Will await for Dr. Pereyra to arrive.
[2020-01-10] MEDS ORDERED: FLU VACC QS 2020-21(6MOS+)/PF 0.5 ML SYRINGE. VAX IM ONE (09:00)
[2020-01-10 10:00] VITALS: BP 130/72
[2020-01-10] MEDS ORDERED: traMADol 50 MG TABLET PO PRN (10:45)
--- NOTE | 2020-01-10 10:49 | HP ---
ADMIT DATE: 01/09/2020 ATTENDING PHYSICIAN: Dr. Cruz. CHIEF COMPLAINT: Altered mentation. HISTORY OF PRESENT ILLNESS: The patient is a 69-year-old debilitated female cared for by her at home. She is diabetic. She became hypoglycemic. She had a blood sugar of 64. She was very confused. She was admitted then for further treatment. She was given carbohydrate solution and brought her sugars up a bit. Unfortunately, she has stage 4 pancreatic cancer with metastasis to liver and lymph nodes. She is getting some immunotherapy for palliation. She remains a full code. is the main yard assistant. PAST MEDICAL HISTORY: Other medical history includes old stroke with residual cognitive deficits, type 2 diabetes, morbid obesity and the pancreatic cancer. ALLERGIES: She has no recorded drug allergies. CURRENT MEDICATIONS: Reviewed from the ED, she is a poor historian. She was getting amlodipine, aspirin, vitamin D3, Farxiga, Lovenox, Neurontin, glimepiride, insulin, Synthroid, losartan, magnesium hydroxide, Zocor, Ultram, Effexor and Ambien at bedtime. FAMILY HISTORY: Unobtainable. REVIEW OF SYSTEMS: Unobtainable due to the patient's condition. PHYSICAL EXAMINATION: GENERAL: When I saw her, this is a confused female with expressive aphasia. She had word stutter. INITIAL VITAL SIGNS: Showed a blood pressure 140/63 mmHg, pulse 71 and regular. She was afebrile, oxygen saturation 97% on room air. HEENT: Head is without trauma. Pupils are reactive. Sclerae nonicteric. Oropharynx clear. NECK: Supple, no bruits. LUNGS: Shallow respirations. CARDIOVASCULAR: Showed regular heart tones. No gallops. ABDOMEN: Soft, obese, protuberant. No organomegaly. Bowel sounds are hypoactive. EXTREMITIES: Show trace edema. NEUROLOGIC: Pleasantly confused. Speech is stuttery . SKIN: Warm and dry. PERTINENT LABORATORY AND X-RAY STUDIES: The obligatory CT of the head demonstrated no acute intracranial process. There is decreased attenuation suggestive of subcortical white matter ischemia and small vessel ischemic changes. Her chest x-ray showed no acute infiltrates. There is no decompensation or infiltrates identified. Admission blood sugar is over 60. Hemoglobin was 13.4 g/dL with a white count of 4400. Followup blood sugars have been drawn and there are improved. Her electrolytes were within normal range. Creatinine is 1.0 mg percent. Transaminases were normal. Ammonia level was normal. ASSESSMENT: 1. This 69-year-old female has symptomatic hypoglycemia related to her diabetes. 2. Stage 4 pancreatic cancer with metastasis. 3. Multi-infarct dementia component. 4. Old stroke with residual cognitive defects. 5. Expressive aphasia. 6. Morbid obesity. PLAN: 1. Admit to the inpatient unit. 2. Insulin regimen held. 3. Diet as tolerated. 4. I shall contact her to determine plan of care. CAMILLE CRUZ MD DR: MEAGAN/teresa JOB#: [id number] / [id number]
[2020-01-10] MEDS ORDERED: ENOXAPARIN ** NOTE DOSE ** SYRINGE SQ SCH (11:00)
[2020-01-10] MEDS ORDERED: ZOLPIDEM 5 MG TABLET. PO PRN (11:15)
[2020-01-10] MEDS ORDERED: INSULIN LISPRO 300 UNITS/3 ML VIAL. SQ SCH (11:30)
--- NOTE | 2020-01-10 11:30 | NUR ---
Dr. Pereyra here to see pt, he is discharging pt. Pt assisted in getting dressed. awaiting for dc instructions.
--- NOTE | 2020-01-10 11:55 | NUR ---
reviewed discharge instructions with pt, written instructions were given to pts . Dr. Pereyra did not change any of her medications. IV'd dc'd without complications, pt assisted to pov and helped pt into pov upon discharge.
[2020-01-10] MEDS ORDERED: GABAPENTIN 300 MG CAPSULE. PO SCH (14:00)
[2020-01-10] MEDS ORDERED: DOFETILIDE 250 MCG CAPSULE PO SCH (21:00)
[2020-01-10] MEDS ORDERED: METOPROLOL TART IMMED RELEASE 25 MG TABLET. PO SCH (21:00)
[2020-01-10] MEDS ORDERED: INSULIN GLARGINE SYRINGE. SQ SCH (21:00)
[2020-01-10] MEDS ORDERED: SIMVASTATIN 20 MG TABLET PO SCH (21:00)
--- NOTE | 2020-01-10 23:21 | DS ---
DATE OF DISCHARGE: 01/10/2020 ATTENDING PHYSICIAN: Dr. Cruz. FINAL DISCHARGE DIAGNOSES: 1. Symptomatic hypoglycemia related to her diabetes. 2. Type 2 diabetes mellitus, insulin-dependent. 3. Stage IV pancreatic cancer with metastatic disease to liver and lymph nodes. 4. Multiple strokes. 5. Dysarthria. 6. Multi-infarct dementia. 7. Expressive aphasia. 8. Morbid obesity. HISTORY AND PHYSICAL: The patient is an unfortunate 69-year-old female who has been discharged from the snf and at home with her , taking care of her. She has stage 4 pancreatic cancer and she has a terminal condition. I do not see any active treatment. Her initial diagnosis in 09/2019. She was admitted from the ED because she was confused, altered mentation due to low blood sugars. PHYSICAL EXAMINATION: Please see the dictated note. PERTINENT LABORATORY AND X-RAY STUDIES: Followup subsequent sugars initially was 60 mg/dL. It was repeated up to 160, 139, 113, 82 and 103 mg/dL. Hemoglobin maintained at 13.4 g/dL with white count of 4400. The obligatory CT of the head done in the ED yesterday showed no acute intracranial process. There are microvascular changes and some atrophy. COURSE IN THE HOSPITAL: The patient was admitted. We held her oral hypoglycemics. We fed her. Dextrose was given with improvement in her blood sugars. By the next hospital day, she still has expressive aphasia, but she adamantly wanted to go home. I had a meeting with her who happened to bring up her belongings. He is going to take care of her at home and he is strongly considering getting hospice care. He understands the terminal nature of this illness. Therefore, he has agreed to take her home. Her vital signs are stable and blood sugars are improved. She was back to her baseline. At this time, her discharge meds are unchanged, they include the following: She will continue her amlodipine, aspirin, vitamin D3, Farxiga, Lovenox b.i.d., Neurontin, glimepiride, insulin NovoLog and a longer acting insulin as scheduled, Synthroid 150 mcg, losartan, magnesium, metoprolol, Zocor, tramadol p.r.n., Effexor and zolpidem, dose is unchanged. Her prognosis is terminal. She was discharged then from our hospital in stable condition to return home with her and [id number] for continued care. CAMILLE CRUZ MD DR: MEAGAN/teresa JOB#: [id number] / [id number]
[2020-01-11] MEDS ORDERED: LEVOTHYROXINE 150 MCG TABLET PO SCH (07:30)
[2020-01-11] MEDS ORDERED: NON FORMULARY ITEM (Dapagliflozin Propanediol (Farxiga) 10 MG) PO SCH (09:00)
[2020-01-11] MEDS ORDERED: CHOLECALCIFEROL (VITAMIN D3) 1,000 UNIT TABLET PO SCH (09:00)
[2020-01-11] MEDS ORDERED: ASPIRIN CHEWABLE 81 MG TABLET. PO SCH (09:00)
[2020-01-11] MEDS ORDERED: amLODIPine BESYLATE 5 MG TABLET PO SCH (09:00)
[2020-01-11] MEDS ORDERED: VENLAFAXINE 75 MG TABLET. PO SCH (09:00)
[2020-01-11] MEDS ORDERED: GLIMEPIRIDE 2 MG TABLET PO SCH (09:00)
[2020-01-11] MEDS ORDERED: MAGNESIUM OXIDE 400 MG TABLET PO SCH (09:00)
[2020-01-11] MEDS ORDERED: LOSARTAN 50 MG TABLET. PO SCH (09:00)
== END 2020-01-10 12:00 | disposition home or self-care (01) ==
LOC: ER 16:02 → INTOOBSV 17:58 → ICU 17:58 → ER 18:25
PROVIDERS: ADMIT Hospitalist; ATTEND Hospitalist
DX: C25.9 Malignant neoplasm of pancreas, unspecified (principal); R41.82 Altered mental status, unspecified; E11.649 Type 2 diabetes mellitus with hypoglycemia without coma; F01.50 Vascular dementia, unspecified severity, without behavioral disturbance, psychotic disturbance, mood disturbance, and anxiety; E66.01 Morbid (severe) obesity due to excess calories; C77.9 Secondary and unspecified malignant neoplasm of lymph node, unspecified; C78.7 Secondary malignant neoplasm of liver and intrahepatic bile duct; I69.319 Unspecified symptoms and signs involving cognitive functions following cerebral infarction; I69.311 Memory deficit following cerebral infarction; R47.01 Aphasia; Z79.4 Long term (current) use of insulin; Z23 Encounter for immunization; Z68.41 Body mass index [BMI] 40.0-44.9, adult
CPT/HCPCS: 36415; 70450; 71045; 80053; 82140; 82947; 84484; 85025; 87040; 90686; 93005; 96374; 96376; 99285; G0008; G0378; J1815; 90471; G0379

== ENCOUNTER 2020-01-13 11:56 | Emergency (ER) | payer MEDICARE ==
[~2020-01-13] VITALS: Ht 160 cm; Wt 109.7 kg
[~2020-01-13 11:56] MED LIST changes: +CHOL500016 PO; +ENOX40DI SQ; +INSU100V37 SQ; +LEVO150T5 PO; +MAGN250T10 PO; +ONDA4TAB12 PO
--- NOTE | 2020-01-13 12:09 | PHYS DOC ---
Past History Past Medical History: Cancer, CVA, Diabetes, Stroke Additional Past Medical Histor: pancreatic cancer stage four with mets to liver and lymph nodes Additional Past Surgical Histo: rt ankle, rt hip Smoking: Non-smoker Alcohol Use: None Drug Use: None Adult General Chief Complaint Chief Complaint: BLOOD SUGAR PROBLEM HPI HPI Patient is a 69-year-old female who presents via EMS for hypoglycemia. Patient was recently admitted to our facility for hypoglycemic event causing altered mental status. She was admitted and had fingerstick blood sugar monitored throughout entirety of visit and was stable without any further intervention beyond that provided in the ER and eating daily amounts of food. Nonetheless, patient took regularly prescribed evening, long-acting insulin yesterday evening and did not eat breakfast today. She subsequently suffered hypoglycemic event without fall/trauma and became unresponsive per her leading him to to call EMS. On scene, patient's fingerstick blood sugar was reported to be "low" per fingerstick blood sugar machine. There was difficulty obtaining IV access and so, 1 mg subQ glucagon administered. Patient's mentation and fingerstick blood sugars improved in route to our facility, patient presenting to our ER AAO x3 with last fingerstick blood glucose 132 per EMS. She is angry on arrival stating "I want to go home". She is refusing an IV and any intervention on arrival Review of Systems Review of Systems Fourteen body systems of review of systems have been reviewed. See HPI for pertinent positives and negative responses, other thomas all other systems are negative, non-pertinent or non-contributory Allergies Allergies Allergies Coded Allergies Type Severity Reaction Last Updated Verified No Known Drug Allergies 08/10/16 No Physical Exam Physical Exam Constitutional: Well developed, well nourished, aggravated, non-toxic appearance. HENT: Normocephalic, atraumatic, bilateral external ears normal, oropharynx dry, no oral exudates, nose normal. Eyes: PERRLA, EOMI, conjunctiva normal, no discharge. Right exotropia present Neck: Normal range of motion, no tenderness, supple, no stridor. Cardiovascular: Heart rate regular, sinus rhythm, no murmurs rubs or gallops Lungs & Thorax: Bilateral breath sounds clear to auscultation Abdomen: Bowel sounds normal, soft, no tenderness, no masses, no pulsatile masses. Nonsurgical abdomen, no peritoneal signs Skin: Warm, dry, no erythema, no rash. Back: No tenderness, no CVA tenderness. Extremities: No tenderness, no cyanosis, no clubbing, ROM intact, no edema. Neurologic: Alert and oriented X 3, motor and sensory function at baseline, patient has expressive aphasia which is at baseline, patient has prior focal deficits from history of CVAs, no acute findings during examination today Psychologic: Anxious, is aggravated and repeatedly telling staff " I want to go home" Current Patient Data Vital Signs Vital Signs Date Time Temp Pulse Resp B/P (MAP) Pulse Ox O2 Delivery O2 Flow Rate FiO2 01/13/20 12:55 77 16 151/52 (85) 100 Nasal Cannula 01/13/20 11:58 97.7 Lab Results Laboratory Tests Test 01/13/20 12:09 01/13/20 12:25 01/13/20 13:10 01/13/20 13:56 Glucose (Fingerstick) 28 mg/dL (70-99) 42 mg/dL (70-99) 86 mg/dL (70-99) 58 mg/dL (70-99) Test 01/13/20 14:58 Glucose (Fingerstick) 226 mg/dL (70-99) EKG EKG [] Radiology/Procedures Radiology/Procedures [] Heart Score HEART Score for Chest Pain: HEART Score for Chest Pain Response (Comments) Value History Slighlty/Non-Suspicious 0 Risk Factors >3 Risk Factors or Hx CAD 2 Total 2 Risk Factors: Risk Factors: DM, Current or recent (<one month) smoker, HTN, HLP, family history of CAD, obesity. Risk Scores: Risk Factors: DM, Current or recent (<one month) smoker, HTN, HLP, family history of CAD, obesity. Course & Med Decision Making Course & Med Decision Making ABCs unremarkable, presenting fingerstick blood glucose 38. Patient denying any attempts at obtaining IV access on arrival and angrily repeats "I want to go home ". She was able to consume x4 apple juice cups, x1 pop tart and a meal tray this visit. IV access was finally obtained and x1 amp D50 administered. She was observed for greater than 180 minutes with improving fingerstick blood glucose readings. Patient still adamant about not receiving any other ER work-up and/or intervention. I recommended admission but she declined, her also declined both voicing that they want to go home. She is at baseline and tolerating p.o. intake. She is pending hospice care visit to establish care at her home today and wants to go home for this visit which I feel is understandable and appropriate. states he will be able to monitor patient's fingerstick blood glucose regularly in the interim. I called patient's primary care provider who saw patient Friday, glimepiride was discontinued at that time. notes decreased patient's Lantus from 40 units in the e vening to 26 on Friday, cites he has given different dosages each night in sliding scale fashion. I do not feel patient's is knowledgeable on patient's insulin regiment, I fear continued insulin use puts patient at risk for ongoing hypoglycemic events. Given that she is transitioning to hospice care, joint decision among all to discontinue long-acting insulin use until p atient and can discuss ongoing need of this medication. I educated both patient and on transient hyperglycemia risks but the benefits of holding insulin use outweigh the risks at this time. Strict return precautions were discussed at length with good understanding by patient who is able to restate plan and concerning signs or symptoms that should prompt immediate medical attention. All questions and concerns addressed prior to ER departure Dragon Disclaimer Dragon Disclaimer This electronic medical record was generated, in whole or in part, using a voice recognition dictation system. Departure Departure: Impression: Primary Impression: Hypoglycemia associated with type 2 diabetes mellitus Additional Impression: Primary pancreatic cancer with metastasis to other site Disposition: 01 DC HOME SELF CARE/HOMELESS Condition: IMPROVED Referrals: QUE ALMEIDA MD (PCP) Patient Instructions: Hypoglycemia (Low Blood Sugar), Hypoglycemia, [facility] Problem Qualifiers MATY SORIA DO Jan 13, 2020 12:09
[2020-01-13 12:55] VITALS: BP 151/52
[2020-01-13] MEDS ORDERED: DEXTROSE 50% 25 GM / 50ML DISP.SYRIN. IV ONE (14:00)
== END 2020-01-13 15:05 | disposition home or self-care (01) ==
LOC: ER 11:56
DX: E11.649 Type 2 diabetes mellitus with hypoglycemia without coma (principal); Z85.07 Personal history of malignant neoplasm of pancreas; Z86.73 Personal history of transient ischemic attack (TIA), and cerebral infarction without residual deficits
CPT/HCPCS: 82947; 96374; 99283